=== PATIENT | female | born 1955 | race Caucasian/White ===

== ENCOUNTER 2019-12-18 08:27 | Outpatient (CLI) | payer OTHER, SELFPAY ==
--- NOTE | ~2019-12-18 | MM_ITS ---
EXAMINATION: MM screening kar BI w tess HISTORY: Screening mammogram TECHNIQUE: Craniocaudal and mediolateral oblique 3-D tomosynthesis images were obtained and synthetic 2-D images were generated. CAD analysis was submitted and interpreted. COMPARISON: No prior mammogram is available for comparison at this institution. BREAST PARENCHYMAL COMPOSITION: The breasts are almost entirely fatty. FINDINGS: There is no evidence of suspicious mass, calcification, or architectural distortion to sugg est malignancy in either breast. There has been no suspicious interval change. IMPRESSION: 1. No mammographic evidence of malignancy. 2. Recommend routine screening mammography in one year. BI-RADS Category 1: Negative Reviewed, dictated and finalized at location A.
== END 2019-12-18 08:28 | disposition home or self-care (01) ==
LOC: ANHIMG 08:28
PROVIDERS: PCP Family Medicine; Visit Provider Family Medicine
DX: Z12.31 Encounter for screening mammogram for malignant neoplasm of breast (principal)
CPT/HCPCS: 77063; 77067

== ENCOUNTER 2020-02-27 15:57 | Outpatient (CLI) | payer OTHER, SELFPAY ==
--- NOTE | ~2020-02-27 | XR_ITS ---
EXAMINATION: XR wrist RT min 3V DATE: 02/27/2020 16:20 INDICATION: Right wrist pain and swelling. TECHNIQUE: 4 views of right wrist were obtained. COMPARISON: None. FINDINGS: Bone alignment is normal. No fracture. Joint spaces are normal. IMPRESSION: 1. Normal right wrist. Reviewed, dictated and finalized at location A. IMPRESSION: 1. Normal right wrist.
== END 2020-02-27 15:58 | disposition home or self-care (01) ==
PROVIDERS: PCP Family Medicine; Visit Provider Family Medicine
DX: M25.531 Pain in right wrist (principal)
CPT/HCPCS: 73110

== ENCOUNTER 2020-04-03 00:46 | Outpatient (CLI) | payer MEDICARE, OTHER, SELFPAY ==
[2020-04-03 18:07] LABS: SARS-CoV-2 RNA PCR Negative
== END 2020-04-03 00:47 | disposition home or self-care (01) ==
LOC: ANHCOVIDDT 00:46
PROVIDERS: PCP Family Medicine; Visit Provider Internal Medicine Gastroenterology
DX: Z01.818 Encounter for other preprocedural examination (principal); Z11.59 Encounter for screening for other viral diseases
CPT/HCPCS: 87635; C9803; U0003

== ENCOUNTER 2020-04-05 01:36 | Day surgery (SDC) | payer MEDICARE, OTHER, SELFPAY ==
[2020-04-01 14:14] VITALS: BMI 29.0
[2020-04-05 06:50] VITALS: BP 141/70; PULSE 65; RESP 18; TEMP 36.7; O2SAT 99; BMI 29.5
[2020-04-05] MEDS: LACTATED RINGERS 1,000 ML 150 ML IV CONT (07:00)
[2020-04-05 07:05] LABS: Glucose Point of Care 89 (65-105)
--- NOTE | 2020-04-05 07:15 | WPDANESEPPF ---
Anes - Initial Pre Proc Eval Procedure: Operation Date: 04/05/20 08:00 Proposed Procedures p Screening Colonoscopy - Yehuda Fish MD Date/Time: 04/05/20 07:15 Surgeon: Yehuda Fish MD Pre Op Diagnosis: fm hx of colon ca Patient Data Age: 64 Gender: F Height: 5 ft 2 in Weight: 73.3 kg Last Vital Signs Temp 36.7 C 04/05/20 06:50 Pulse 65 04/05/20 06:50 Resp 18 04/05/20 06:50 BP 141/70 H 04/05/20 06:50 Pulse Ox 99 04/05/20 06:50 Allergies Allergy/AdvReac Type Severity Reaction Status Date / Time No Known Allergies Allergy Unknown Verified 04/05/20 06:48 Home Medications Medication Instructions Recorded Confirmed Type lisinopril 10 mg tablet 10 mg PO DAILY #90 tablet 08/23/19 04/01/20 Rx montelukast 10 mg tablet 10 mg PO DAILY #90 tablet 09/12/19 04/01/20 Rx estradiol 1 mg tablet 1 mg PO DAILY #90 tablet 10/05/19 04/01/20 Rx metformin 500 mg tablet,extended 1,000 mg PO BID #360 tablet 02/27/20 04/01/20 Rx release 24 hr rosuvastatin 10 mg tablet 10 mg PO DAILY #90 tablet 02/27/20 04/01/20 Rx Juice Plus 1 tab-cap PO BID 04/01/20 04/01/20 History Sbi Powder 1 scoop/day PO DAILY 04/01/20 04/01/20 History collagen (bovine) 1 applic TOPICAL DAILY 04/01/20 04/01/20 History fexofenadine [Elizabeth Allergy] 60 mg PO DAILY 04/01/20 04/01/20 History niacin 1,000 mg PO HS 04/01/20 04/01/20 History potassium bicarb-magnesium 21 1 g PO DAILY 04/01/20 04/01/20 History red yeast rice 600 mg PO DAILY 04/01/20 04/01/20 History vitamin D3-vitamin K2 1 tablet PO DAILY 04/01/20 04/01/20 History Laboratory Tests 04/05/20 06:59 POC Capillary Glucose 89 mg/dl mg/dl (65-105) Patient hx anesthesia problems: none Family hx anesthesia problems: none PMFSH Past Medical History Medical History Abdominal hernia Chronic maxillary sinusitis Family History Family History Mother Family history of primary malignant neoplasm of liver Family history of pancreatic cancer Diabetes mellitus Hypertension Family history of elevated blood lipids Carcinoma of colon Father Family history of elevated blood lipids Family history of coronary artery disease Diabetes mellitus Family history of cardiovascular disease Sibling Family history of coronary artery disease Diabetes mellitus Family history of elevated blood lipids Family history of liver disease Family history of seizure disorder Grandparent Family history of malignant neoplasm of breast Social History Social History Smoking status: Never smoker Alcohol intake: current Anes - Eval Final PreProcedure Day of Procedure 04/05/20 07:15 Patient weight: overweight Heart: regular rate and rhythm Lungs: clear to auscultation Airway: Mallampati scale class II Neurological: alert and oriented Last oral intake: >/= 8 hours ASA classification: III Emergent: no Anesthetic plan: proceed Anesthesia type and monitoring: general GIVS and standard monitoring Informed Consent: The patient's anesthetic plan and its attendant risks and benefits were discussed with the patient/family/POA. Questions were solicited and answers provided to the satisfaction of the patient/family/POA.
--- NOTE | 2020-04-05 07:44 | WPDGICN ---
Assessment and Plan Assessment and plan (1) Family history of colon cancer in mother: Code(s): Z80.0 - Family history of malignant neoplasm of digestive organs Status: Acute Assessment and Plan: Patient's family history is significant that mother had colon cancer and her sister has had colon polyps. For this reason surveillance colonoscopy is advised now on a 5 year intervals in the future. (2) Family history of colonic polyps: Code(s): Z83.71 - Family history of colonic polyps Status: Acute GI Consult Note Consult date/time: 04/05/20 07:44 HPI: Cyndy Sahni is a 64 year old female seen in evaluation at the request of Dr Heather Galvez. Patient presents for screening surveillance colonoscopy. Patient states that her current weight appetite bowel movements are normal. She denies abdominal pain she denies any blood in her stools. Her family history is significant that her mother had colon cancer and her sister has had colon polyps. Patient's last colonoscopy 5 years ago was unremarkable. Review of Systems Review of Systems: All systems reviewed & are unremarkable except as noted in HPI and below PMFSH Past Medical History Medical History Abdominal hernia Chronic maxillary sinusitis Family History Family History Mother Family history of primary malignant neoplasm of liver Family history of pancreatic cancer Diabetes mellitus Hypertension Family history of elevated blood lipids Carcinoma of colon Father Family history of elevated blood lipids Family history of coronary artery disease Diabetes mellitus Family history of cardiovascular disease Sibling Family history of coronary artery disease Diabetes mellitus Family history of elevated blood lipids Family history of liver disease Family history of seizure disorder Grandparent Family history of malignant neoplasm of breast Social History Social History Smoking status: Never smoker Alcohol intake: current Meds Home Medications and Allergies Home Medications Medication Instructions Recorded Confirmed Type lisinopril 10 mg tablet 10 mg PO DAILY #90 tablet 08/23/19 04/01/20 Rx montelukast 10 mg tablet 10 mg PO DAILY #90 tablet 09/12/19 04/01/20 Rx estradiol 1 mg tablet 1 mg PO DAILY #90 tablet 10/05/19 04/01/20 Rx metformin 500 mg tablet,extended 1,000 mg PO BID #360 tablet 02/27/20 04/01/20 Rx release 24 hr rosuvastatin 10 mg tablet 10 mg PO DAILY #90 tablet 02/27/20 04/01/20 Rx Juice Plus 1 tab-cap PO BID 04/01/20 04/01/20 History Sbi Powder 1 scoop/day PO DAILY 04/01/20 04/01/20 History collagen (bovine) 1 applic TOPICAL DAILY 04/01/20 04/01/20 History fexofenadine [Elizabeth Allergy] 60 mg PO DAILY 04/01/20 04/01/20 History niacin 1,000 mg PO HS 04/01/20 04/01/20 History potassium bicarb-magnesium 21 1 g PO DAILY 04/01/20 04/01/20 History red yeast rice 600 mg PO DAILY 04/01/20 04/01/20 History vitamin D3-vitamin K2 1 tablet PO DAILY 04/01/20 04/01/20 History Allergies Allergy/AdvReac Type Severity Reaction Status Date / Time No Known Allergies Allergy Unknown Verified 04/05/20 06:48 Vital Signs Vital Signs - 24 hr 04/05/20 06:50 Temperature 98.0 F Pulse Rate 65 Respiratory Rate 18 Blood Pressure 141/70 H Pulse Oximetry 99 Exam Narrative: Exam Narrative: Physical exam reveals patient be alert. Oriented x3. Vital signs stable. HEENT exam unremarkable. Lungs are clear to auscultation and to percussion. Heart is without murmur or extra sounds. Abdominal exam bowel sounds are present soft nontender with no hepatosplenomegaly. Digital external rectal exam is normal.
[2020-04-05 08:08] VITALS: BP 142/77; PULSE 94; RESP 20; O2SAT 96
[2020-04-05 08:18] VITALS: BP 139/81; PULSE 72; RESP 18; O2SAT 96
[2020-04-05 08:28] VITALS: BP 134/76; PULSE 58; RESP 17; O2SAT 100
== END 2020-04-05 08:45 | disposition home or self-care (01) ==
PROVIDERS: PCP Family Medicine; Visit Provider Internal Medicine Gastroenterology
PROC: 0DJD8ZZ Inspection of Lower Intestinal Tract, Via Natural or Artificial Opening Endoscopic (ICD-10-PCS; CPT 45378; principal; 2020-04-05 08:00)
DX: Z12.11 Encounter for screening for malignant neoplasm of colon (principal); D12.0 Benign neoplasm of cecum; D12.2 Benign neoplasm of ascending colon; K64.8 Other hemorrhoids; Z83.71 Family history of colonic polyps; Z80.0 Family history of malignant neoplasm of digestive organs
CPT/HCPCS: 45385; 88305; J2704; J7120

== ENCOUNTER 2020-11-18 12:23 | Outpatient (CLI) | payer MEDICARE, SELFPAY ==
--- NOTE | ~2020-11-18 | MMUS_ITS ---
EXAMINATION: MM diagnostic kar BI w tess, US breast LT limited HISTORY: Pain in the outer left breast. TECHNIQUE: Craniocaudal, mediolateral, and mediolateral oblique 3-D tomosynthesis images of the pauline ts were performed and synthetic 2-D images were generated. CAD analysis was submitted and interpreted . High resolution limited left breast ultrasound was performed. COMPARISON: 12/18/2019, 12/14/2018, 11/26/2017, 11/19/2016 BREAST PARENCHYMAL COMPOSITION: The breasts are almost entirely fatty. FINDINGS: MAMMOGRAPHIC FINDINGS: There is no evidence of suspicious mass, calcification, or architectural distortion in either breast to suggest malignancy. There has been no suspicious interval change. No mammographic correlate is id entified for the reported pain in the upper outer quadrant of the left breast. ULTRASOUND: There is no evidence of focal abnormal solid or cystic lesion in the vicinity of the patient's report ed breast pain. IMPRESSION: 1. No specific mammographic or sonographic correlate is identified for the reported left breast pain Further evaluation at this time should be based on clinical assessment. Continued follow-up physical examination is recommended. 2. Recommend routine screening mammography in one year. BI-RADS Category 1: Negative Reviewed, dictated and finalized at location A. HER FISH IMPRESSION: 1. No specific mammographic or sonographic correlate is identified for the repo rted left breast pain Further evaluation at this time should be based on clinic al assessment. Continued follow-up physical examination is recommended. 2. Recommend routine screening mammography in one year. BI-RADS Category 1: Negative
== END 2020-11-18 12:24 | disposition home or self-care (01) ==
PROVIDERS: PCP Family Medicine; Visit Provider Family Medicine
DX: N64.4 Mastodynia (principal)
CPT/HCPCS: 76642; 77062; 77066; G0279

== ENCOUNTER 2021-04-10 13:15 | Outpatient (CLI) | payer MEDICARE, SELFPAY ==
--- NOTE | 2021-04-10 13:20 | ECG_ITS ---
Measurements Intervals [place] Rate: 71 P: 25 VA: 144 QRS: 5 QRSD: 88 T: 30 QT: 354 QTc: 385 Interpretive Statements SINUS RHYTHM BORDERLINE R WAVE PROGRESSION, ANTERIOR LEADS BORDERLINE ECG Electronically Signed On 04-10-2021 15:56:13 CDT by Joni Gan D.O.
[2021-04-10 13:57] LABS: Anion Gap 9 mmol/L (8-16); Blood Urea Nitrogen 11 mg/dL (7-17); Calcium 10.1 mg/dL (8.4-10.2); Carbon Dioxide 29 mmol/L (22-30); Chloride 100 mmol/L (98-107); Estimated Glomerular Filt Rate > 60; Glucose 102 mg/dL (65-105); Potassium 3.6 mmol/L (3.4-5.0); Sodium 138 mmol/L (137-145)
== END 2021-04-10 13:16 | disposition home or self-care (01) ==
LOC: ANHSURGERY 13:18
PROVIDERS: Anesthesiology; PCP Family Medicine; Visit Provider Surgery Plastic and Reconstructive Surgery
DX: I10 Essential (primary) hypertension (principal); R73.03 Prediabetes; R94.31 Abnormal electrocardiogram [ECG] [EKG]
CPT/HCPCS: 36415; 80048; 93005

== ENCOUNTER 2021-04-15 01:12 | Day surgery (SDC) | payer MEDICARE, OTHER, SELFPAY ==
[2021-04-09 14:43] VITALS: BMI 27.6
[2021-04-15] VITALS (15 sets, daily range): BP systolic 152–184; BP diastolic 71–95; PULSE 63–79; RESP 10–20; TEMP 36.1–36.2; O2SAT 96–100
[2021-04-15 10:00] LABS: Urine Cotinine NEGATIVE
[2021-04-15] MEDS: LACTATED RINGERS 1,000 ML 30 ML IV CONT ×2 (10:20→14:30)
[2021-04-15 10:23] LABS: Glucose Point of Care 94 mg/dl (65-105)
--- NOTE | 2021-04-15 10:25 | WPDHPUPDATE1 ---
History and Physical Update Update Date/Time: 04/15/21 10:25 History and Physical has been reviewed, including an updated exam of the patient. There are NO changes in the patient's condition. Risks, benefits, and alternatives have been discussed and questions answered. Patient agrees to proceed with procedure.
--- NOTE | 2021-04-15 10:47 | WPDANESEPPF ---
Anes - Initial Pre Proc Eval Procedure: Operation Date: 04/15/21 11:30 Proposed Procedures p Bilateral Breast Reduction, - Elier Godwin MD s Lateral Liposuction of Breasts - Elier Godwin MD Date/Time: 04/15/21 10:47 Surgeon: Elier Godwin MD Pre Op Diagnosis: macromastia Patient Data Age: 66 Gender: F Height: 1.57 m Weight: 68 kg Last Vital Signs Temp 97.2 F L 04/15/21 10:30 Pulse 76 04/15/21 10:30 BP 162/71 H 04/15/21 10:30 Pulse Ox 98 04/15/21 10:30 Allergies Allergy/AdvReac Type Severity Reaction Status Date / Time No Known Allergies Allergy Unknown Verified 04/15/21 09:54 Home Medications Medication Instructions Recorded Confirmed Type Juice Plus 1 tab-cap PO BID 04/01/20 04/15/21 History Sbi Powder 1 scoop/day PO DAILY 04/01/20 04/15/21 History fexofenadine [Elizabeth Allergy] 60 mg PO DAILY 04/01/20 04/15/21 History niacin 1,000 mg PO HS 04/01/20 04/15/21 History potassium bicarb-magnesium 21 1 g PO DAILY 04/01/20 04/15/21 History red yeast rice 600 mg PO DAILY 04/01/20 04/15/21 History vitamin D3-vitamin K2 1 tablet PO DAILY 04/01/20 04/15/21 History fluticasone propionate 50 See Rx Instructions .ROUTE 09/16/20 04/15/21 Rx mcg/actuation nasal .COMPLEX #16 milliliter spray,suspension montelukast 10 mg tablet See Rx Instructions .ROUTE 10/01/20 04/15/21 Rx .COMPLEX #30 tablet lisinopril 10 mg tablet 10 mg PO DAILY #90 tablet 11/19/20 04/15/21 Rx metformin 500 mg tablet,extended 1,000 mg PO BID #360 tablet 11/19/20 04/15/21 Rx release 24 hr omeprazole [Prilosec] 20 mg PO PRN PRN 12/25/20 04/15/21 History sennosides 8.6 mg tablet 8.6 mg PO PRN PRN 12/25/20 04/15/21 History estradiol 1 mg tablet See Rx Instructions .ROUTE 03/04/21 04/15/21 Rx .COMPLEX #90 tablet docusate sodium 100 mg capsule 100 mg PO DAILY #14 cap 04/02/21 04/09/21 Rx ondansetron HCl 4 mg tablet 4 mg PO Q8H #21 tablet 04/02/21 04/09/21 Rx hydrocodone 5 mg-acetaminophen 325 1 tablet PO Q6H PRN #15 tablet 04/06/21 04/09/21 Rx mg tablet rosuvastatin [Crestor] 10 mg PO HS 04/09/21 04/15/21 History Laboratory Tests 04/15/21 04/15/21 09:41 10:20 POC Capillary Glucose 94 mg/dl mg/dl (65-105) Cotinine Negative Patient hx anesthesia problems: post op nausea/vomiting Family hx anesthesia problems: none PMFSH Past Medical History Medical History (Updated 04/15/21 @ 10:40 by Arya Hill MD) Abdominal hernia Chronic maxillary sinusitis Essential hypertension History of chicken pox (~1960) History of measles History of mumps Mixed hyperlipidemia Prediabetes Surgical History Surgical History History of appendectomy (~05/03/06) History of dilatation and curettage (~02/1981) History of endometrial ablation (~1988) History of hernia repair (~01/08/16) History of hysterectomy with bilateral oophorectomy (~06/1987) History of tubal ligation (~01/26/85) Family History Family History Mother , age 90 Family history of primary malignant neoplasm of liver Family history of pancreatic cancer Diabetes mellitus Hypertension Family history of elevated blood lipids Carcinoma of colon Pancreatic cancer Father , age 62 Family history of coronary artery disease Diabetes mellitus Heart disease Hyperlipidemia Sibling Diabetes mellitus Seizure Mental disability Sibling Heart disease ALS (amyotrophic lateral sclerosis) Sibling , age 32 Liver cirrhosis Grandparent Breast cancer Grandparent Heart disease Social History Social History Smoking status: Unknown if ever smoked Alcohol intake: current Alcohol use details: ONE DRINK PER MONTH Living arrangements: with family Spiritual care concerns: No Anes - Eval Final PrePro
--- NOTE | 2021-04-15 10:53 | P.OP_ITS ---
Procedure Note - Detailed Date of Procedure 04/15/21 Pre-op Diagnosis macromastia Post-op Diagnosis same Procedure Performed Bilateral reduction mammaplasty with lateral chest wall suction lipectomy Surgeon Elier Godwin MD Anesthesia general Findings Tissue removed: Right - 632 grams breast tissue, 683.6 total weight (including lateral breast) Left - 608.8 grams breast tissue, 660.6 total weight (including lateral tissue) Suction lipectomy lipoaspirate 800 cc (400 per side) Description of Procedure She is here today for bilateral breast reduction. Previously and again today the risks, benefits, alternatives were discussed in extensive detail. I wanted her to be very realistic about the risks involved as well as expectations. We discussed aftercare and what to monitor for. She understands we can never guarantee final breast size and there will always be asymmetry. I was very upfront and honest about the risks of sensation change and even nipple loss (). We discussed her suction lipectomy and the limitations as well as skin laxity that may result. Made sure answered all of her questions to her satisfaction today and consent was obtained. She was marked in the preoperative holding area with their verification. The patient was taken to the operating room placed supine on the operating table. Anesthesia was provided by anesthesiology. She was prepped and draped in a standard sterile fashion. A surgical time-out was taken. Stab incisions were made and I tumessed with a tumescent solution. Suction lipectomy was completed based on S.A.F.E. technique in multiple planes / passes using a 5mm and 3mm basket cannulas to a rolling pinch test based on pre- operative planning. I marked out the nipple-areolar complex at 42 mm. I then de-epithelialized the pedicle. The pedicle was well left well more than 2 cm in thickness. I then removed the inferior portion of the breast as well as the central keel to get shape based on preoperative planning. At this point copiously irrigated with saline solution and verified a strict hemostasis. I reapproximated the pillars using a 2-0 PDS as well as along the IMF. I tailor tacked the breast into place with wellington. She was placed in a sitting position. I verified the nipple-areolar complex position based on preoperative markings, intraoperative measurements, and observation which were in full agreement. This nipple-areolar complex was marked at 42 mm in size. I then placed supine and de-epithelialized this. Nipple-areolar complex was inset with 3-0 Monocryl. I closed the vertical incision with 3-0 Monocryl in the IMF with 3-0 stratafix. Then everything was closed using a running subcuticular 4-0 Monocryl followed by Steri-Strips. A dressing was placed followed by surgical bra. Patient was awoke and taken to PACU without difficulty. All instrument sponge counts were correct at the end of the case. Estimated Blood Loss 75 Drains No Packing No Pathology yes (Bilateral breast tissue) Complications No immediate complications Condition stable Disposition PACU
[2021-04-15] MEDS: SCOPOLAMINE 1.5 MG PATCH TRANSDERM (10:56)
[2021-04-15] MEDS: ceFAZolin 2 GM/D5W 50 ML 2 GM/50 ML BAG IVPB (11:07)
[2021-04-15] MEDS: LACTATED RINGERS IRRIG 1,000 ML, LIDOCAINE HCL 1% LOCAL INJ 50 ML, EPINEPHrine HCL INJ ... INFILTRATE (13:17)
--- NOTE | 2021-04-15 13:37 | SUR.OPER ---
Liposuction times: start 1145 stop 1210 start 1251 stop 1301
[2021-04-15] MEDS: TRANEXAMIC ACID 1,000MG/ISO100 1,000 MG/100 ML BAG 200 MG IVPB (13:47)
[2021-04-15 15:08] LABS: Glucose Point of Care 107 mg/dl (65-105)
[2021-04-15] MEDS: fentaNYL CITRATE INJ (*CRX) 100 MCG/2 ML VIAL 25 MCG IV PUSH ×3 (15:43→16:10)
[2021-04-15] MEDS: oxyCODONE HCL (*CRX) 5 MG TAB IR PO (17:12)
== END 2021-04-15 18:15 | disposition home or self-care (01) ==
PROVIDERS: PCP Family Medicine; Visit Provider Surgery Plastic and Reconstructive Surgery
PROC: 0HBV0ZZ Excision of Bilateral Breast, Open Approach (ICD-10-PCS; CPT 19318; principal; 2021-04-15 11:30)
PROC: (CPT 15877; 2021-04-15 11:30)
DX: N62 Hypertrophy of breast (principal); D22.5 Melanocytic nevi of trunk; I10 Essential (primary) hypertension; E78.2 Mixed hyperlipidemia; R73.03 Prediabetes; Z79.899 Other long term (current) drug therapy; Z79.84 Long term (current) use of oral hypoglycemic drugs
CPT/HCPCS: 19318; 80307; 82948; 88305; 88342; A9270; J0171; J0690; J1100; J1170; J2250; J2405; J2704; J3010; J7120

== ENCOUNTER 2021-06-25 14:30 | Outpatient (CLI) | payer MEDICARE, SELFPAY ==
--- NOTE | ~2021-06-25 | CT_ITS ---
EXAMINATION: CT abdomen pelvis wo con DATE: 06/25/2021 14:49 INDICATION: Abdominal and pelvic swelling TECHNIQUE: Computed tomography (CT) of the abdomen and pelvis was performed without intravenous contr ast. The dose-length product (DLP) was 531.49 mGy-cm. Automated exposure control and iterative recons truction technique were employed. COMPARISON: 04/28/2006 FINDINGS: The lung bases are clear. The heart size is normal. Within the limitations of noncontrast e xamination, the liver, spleen, pancreas, gallbladder, and adrenal glands are normal. The kidneys are unremarkable. No pathologically enlarged abdominal or pelvic lymph nodes are identified. There is no free intraperitoneal gas or evidence of bowel obstruction. There is a small infraumbilical hernia con taining the anterior wall of a nonobstructed small bowel. In addition, there is a [id number] s ized suprapubic ventral hernia containing nonobstructed small bowel. There is mild lumbar spondylosis . IMPRESSION: 1. Infraumbilical and suprapubic ventral hernias containing nonobstructed small bowel. Reviewed, dictated and finalized at location A.
== END 2021-06-25 14:31 | disposition home or self-care (01) ==
LOC: ANHIMG 14:34
PROVIDERS: PCP Family Medicine; Visit Provider Surgery Plastic and Reconstructive Surgery
DX: R19.00 Intra-abdominal and pelvic swelling, mass and lump, unspecified site (principal); K42.9 Umbilical hernia without obstruction or gangrene; K43.9 Ventral hernia without obstruction or gangrene
CPT/HCPCS: 74176

== ENCOUNTER 2021-10-15 11:15 | Observation (INO) | payer MEDICARE, SELFPAY ==
--- NOTE | 2021-09-30 09:54 | PC.NURSE ---
Report to the Outpatient Waiting Room, entrance under the green pavilion located off [facility], at time _0600_ on date _10/14/21__. OR Time: _0730 AM__. - You and your visitor will be asked a series of questions to screen for COVID 19 for your protection. - A mask is required within the hospital. - NO visitors are allowed at this time. Patient visitors will be guided where to wait when not with patient. Preoperative COVID Testing Requirements: No COVID Test needed if: (proof is required; if not received patient will have Rapid Test prior to entry) - Patient has received COVID Vaccine at least 14 days prior to procedure date or - Patient has positive COVID test result within last 90 days of surgery date. COVID Test needed if above criteria is not met If not COVID vaccinated a COVID test must be conducted within 72 hours of surgery and patient is asked to isolate self from time of testing until procedure. You will go to the [email or web address] for your COVID testing. The [email or web address] site is located at the corner of [address] [facility]. You will only be called if COVID results are positive and your surgeon may reschedule your elective surgery date. Patients may have clear liquids (water, carbonated beverages, clear teas, apple juice) until 3 hours prior to surgery with a maximum of 20 ounces. (0430 AM) - No food from midnight until time of surgery - Infants may have breast milk until 4 hours before surgery, infant formula 6 hours prior to surgery. - Children will be allowed to drink immediately following surgery. If applicable, please bring a bottle or sippy cup to assist with drinking. Juice, water, soda, and popsicles are readily available. For infants on formula, please bring formula the day of surgery. Pacifiers are allowed. Take the following medications with a SIP of water the morning of surgery: _NONE__ Medications to discontinue per ANESTHESIA __ALL VITAMINS AND SUPPLEMENTS - PT STATES ALREADY STOPPING 09/21/21 & STOPPED JUICE PLUS 09/30/21 Please no make-up, nail thai, hairspray, perfume, deodorant, or body powder the day of surgery. No jewelry (including any body piercings) or valuables the day of surgery, leave them at home. Please take a shower or bath the night before, or the morning of, surgery with an antibacterial soap. Wear comfortable, loose fitting clothing. Children are encouraged to wear pajamas. - Jewelry must be removed prior to entering the operating room. Rings and piercings that are not removed may be cut off. - The hospital will not accept responsibility for valuables. - Please leave all valuables, including medications, at home the day of surgery. If you are going home after surgery, a licensed delivery motorcycle driver must drive you home. - NO public transportation without another adult. - We recommend that an adult stay with you for 24 hours following discharge. - We also recommend that you do not drive, make important decision, drink alcoholic beverages, or take any drugs that were not prescribed by your health care provider for at least 24 hours after your discharge time. For Pediatric surgeries, we recommend two adults accompany the child home (only one inside the building at this time). Follow any additional instructions given to you from your surgeon. YANIV SHOWER AM OF SURGERY Telephone instructions given to ____PT and asked if any additional questions and then verbalized understanding. Patient advised to call surgeon office or pre surgery nurse liaison [phone] if any additional questions.
[2021-09-30 10:38] VITALS: BP 142/82; PULSE 74; RESP 18; TEMP 36.6; O2SAT 98; BMI 25.2
[2021-10-14] VITALS (13 sets, daily range): BP systolic 91–131; BP diastolic 54–76; PULSE 55–82; RESP 9–18; TEMP 35.6–36.6; O2SAT 94–100
[2021-10-14] MEDS: LACTATED RINGERS 1,000 ML 30 ML IV CONT ×3 (06:35→12:09)
[2021-10-14] MEDS: ACETAMINOPHEN 500 MG TABLET 1000 MG PO ×3 (06:36→20:19)
[2021-10-14] MEDS: KETOROLAC 15 MG/ML VIAL (*BKC) IV PUSH (06:37)
[2021-10-14 06:49] LABS: Glucose Point of Care 105 mg/dl (65-105)
[2021-10-14] MEDS: SCOPOLAMINE 1.5 MG PATCH TRANSDERM (07:10)
--- NOTE | 2021-10-14 07:10 | WPDANESEPPF ---
Anes - Initial Pre Proc Eval Procedure: Operation Date: 10/14/21 07:30 Proposed Procedures p Open Recurrent Incisional Hernia Repair with Mesh, with Bilateral Component Separation - Robbie Estrada DO Date/Time: 10/14/21 07:10 Surgeon: Robbie Estrada DO Pre Op Diagnosis: recurrent incisional hernia Patient Data Age: 66 Gender: F Height: 1.57 m Weight: 62.7 kg Last Vital Signs Temp 36.6 C 09/30/21 10:38 Pulse 74 09/30/21 10:38 Resp 18 09/30/21 10:38 BP 142/82 H 09/30/21 10:38 Pulse Ox 98 09/30/21 10:38 Allergies Allergy/AdvReac Type Severity Reaction Status Date / Time No Known Allergies Allergy Unknown Verified 09/30/21 10:24 Home Medications Medication Instructions Recorded Confirmed Type Juice Plus 1 tab-cap PO BID 04/01/20 09/30/21 History Sbi Powder 1 scoop/day PO DAILY 04/01/20 09/30/21 History fexofenadine [Elizabeth Allergy] 60 mg PO DAILY PRN 04/01/20 09/30/21 History niacin 1,000 mg PO BID 04/01/20 09/30/21 History potassium bicarb-magnesium 21 1 g PO DAILY 04/01/20 09/30/21 History red yeast rice 600 mg PO DAILY 04/01/20 09/30/21 History vitamin D3-vitamin K2 1 tablet PO DAILY 04/01/20 09/30/21 History metformin 500 mg tablet,extended 1,000 mg PO BID #360 tablet 11/19/20 09/30/21 Rx release 24 hr sennosides 8.6 mg tablet 8.6 mg PO PRN PRN 12/25/20 09/30/21 History rosuvastatin [Crestor] 10 mg PO HS 04/09/21 09/30/21 History fluticasone propionate 50 See Rx Instructions .ROUTE 08/22/21 09/30/21 Rx mcg/actuation nasal .COMPLEX #16 ml spray,suspension Methyl B Complex 1 caplet QAM 09/30/21 09/30/21 History estradiol 1 mg QAM 09/30/21 09/30/21 History lisinopril 10 mg QAM 09/30/21 09/30/21 History magnesium 300 mg PO DAILY 09/30/21 09/30/21 History montelukast 10 mg HS 09/30/21 09/30/21 History omeprazole magnesium [Prilosec OTC] 20 mg PO DAILY PRN 09/30/21 09/30/21 History Laboratory Tests 10/14/21 06:46 POC Capillary Glucose 105 mg/dl mg/dl (65-105) Patient hx anesthesia problems: post op nausea/vomiting Family hx anesthesia problems: none Results Review: All pre-operative results and documents have been reviewed as part of the pre-operative evaluation. [facility] Past Medical History Medical History Abdominal hernia Chronic maxillary sinusitis Essential hypertension History of chicken pox (~1960) History of measles History of mumps Mixed hyperlipidemia Prediabetes Surgical History Surgical History History of appendectomy (~05/03/06) History of dilatation and curettage (~02/1981) History of endometrial ablation (~1988) History of hernia repair (~01/08/16) History of hysterectomy with bilateral oophorectomy (~06/1987) History of tubal ligation (~01/26/85) Family History Family History Mother , age 90 Family history of primary malignant neoplasm of liver Family history of pancreatic cancer Diabetes mellitus Hypertension Family history of elevated blood lipids Carcinoma of colon Pancreatic cancer Father , age 62 Family history of coronary artery disease Diabetes mellitus Heart disease Hyperlipidemia Sibling Diabetes mellitus Seizure Mental disability Sibling Heart disease ALS (amyotrophic lateral sclerosis) Sibling , age 32 Liver cirrhosis Grandparent Breast cancer Grandparent Heart disease Social History Social History Smoking status: Never smoker Second hand tobacco smoke exposure: No Alcohol intake: current Alcohol use details: STATES RARELY - MAYBE 1/MONTH Substance use: never Substance use type: does not use Living arrangements: with family 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
--- NOTE | 2021-10-14 07:16 | WPDHPUPDATE1 ---
History and Physical Update Update Date/Time: 10/14/21 07:16 History and Physical has been reviewed, including an updated exam of the patient. There are NO changes in the patient's condition. Risks, benefits, and alternatives have been discussed and questions answered. Patient agrees to proceed with procedure.
--- NOTE | 2021-10-14 07:16 | PM.IMHP ---
H&P: HPI History of Present Illness Date/Time: 10/14/21 07:16 Chief Complaint: Incisional hernia Narrative: 66yo woman presents for recurrent incisional hernia repair. She has a hx of open appendectomy and developed an incisional hernia. She then had this hernia repaired with mesh. She now has evidence of a recurrence. She denies any changes since last seen in office. Review of Systems Review of Systems: All systems reviewed & are unremarkable except as noted in HPI and below Constitutional: Constitutional: Denies chills, Denies fever(s), Denies headache(s) and Denies weight loss Eyes: Eyes: Denies change in vision ENT: Denies dizziness, Denies headache(s), Denies neck mass and Denies throat swelling Cardiovascular: Cardiovascular: Denies chest pain, Denies lightheadedness and Denies dyspnea Respiratory: Respiratory: Denies cough, Denies dyspnea and Denies wheezing Gastrointestinal: Gastrointestinal: Denies abdominal pain, Denies change in bowel habits, Denies nausea and Denies vomiting Genitourinary: Genitourinary: Denies hematuria and Denies dysuria Musculoskeletal: Musculoskeletal: Reports as per HPI Integumentary/Breasts: Skin/Breast: Reports as per HPI Neurologic: Denies dizziness and Denies headache(s) Allergic/Immunologic: Allergic/Immunologic: Denies throat swelling and Denies wheezing PMFSH Past Medical History Medical History Abdominal hernia Chronic maxillary sinusitis Essential hypertension History of chicken pox (~1960) History of measles History of mumps Mixed hyperlipidemia Prediabetes Surgical History Surgical History History of appendectomy (~05/03/06) History of dilatation and curettage (~02/1981) History of endometrial ablation (~1988) History of hernia repair (~01/08/16) History of hysterectomy with bilateral oophorectomy (~06/1987) History of tubal ligation (~01/26/85) Family History Family History Mother , age 90 Family history of primary malignant neoplasm of liver Family history of pancreatic cancer Diabetes mellitus Hypertension Family history of elevated blood lipids Carcinoma of colon Pancreatic cancer Father , age 62 Family history of coronary artery disease Diabetes mellitus Heart disease Hyperlipidemia Sibling Diabetes mellitus Seizure Mental disability Sibling Heart disease ALS (amyotrophic lateral sclerosis) Sibling , age 32 Liver cirrhosis Grandparent Breast cancer Grandparent Heart disease Social History Social History Smoking status: Never smoker Second hand tobacco smoke exposure: No Alcohol intake: current Alcohol use details: STATES RARELY - MAYBE 1/MONTH Substance use: never Substance use type: does not use Living arrangements: with family 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: No Meds Home Medications and Allergies Home Medications Medication Instructions Recorded Confirmed Type Juice Plus 1 tab-cap PO BID 04/01/20 09/30/21 History Sbi Powder 1 scoop/day PO DAILY 04/01/20 09/30/21 History fexofenadine [Elizabeth Allergy] 60 mg PO DAILY PRN 04/01/20 09/30/21 History niacin 1,000 mg PO BID 04/01/20 09/30/21 History potassium bicarb-magnesium 21 1 g PO DAILY 04/01/20 09/30/21 History red yeast rice 600 mg PO DAILY 04/01/20 09/30/21 History vitamin D3-vitamin K2 1 tablet PO DAILY 04/01/20 09/30/21 History metformin 500 mg tablet,extended 1,000 mg PO BID #360 tablet 11/19/20 09/30/21 Rx release 24 hr sennosides 8.6 mg tablet 8.6 mg PO PRN PRN 12/25/20 09/30/21 History rosuvastatin [Crestor] 10 mg PO HS 04/09/21 09/30/21 History fluticasone propionate 50 See Rx Instructions .ROUTE 08/22/21
[2021-10-14] MEDS: ceFAZolin 2 GM/D5W 50 ML 2 GM/50 ML BAG IVPB ×2 (07:28→16:08)
[2021-10-14 11:24] LABS: Glucose Point of Care 123 mg/dl (65-105)
[2021-10-14] MEDS: fentaNYL CITRATE INJ (*CRX) 100 MCG/2 ML VIAL 25 MCG IV PUSH ×3 (12:19→12:49)
--- NOTE | 2021-10-14 12:35 | W.PM.PROC2 ---
Procedure Note - Detailed Date of Procedure 10/14/21 Pre-op Diagnosis recurrent incisional hernia Post-op Diagnosis same Procedure Performed 1. Open recurrent incisional hernia repair with Bard soft polypropylene mesh 2. Bilateral myofascial advancement flap (3 cm transversus abdominis release on right and 3 cm transversus abdominis release on left) 3. Removal of mesh foreign body Surgeon Robbie Estrada DO Field Assistant Wood Ortiz MD Anesthesia general Indications This is a 66-year-old woman who presents with a recurrent incisional hernia. She has noticed bulge in her lower abdomen that has been present for the past several years. She does get some pain and some difficulty urinating with this. She has a history of exploratory laparotomy with appendectomy in 2005, and then she had an incisional hernia repair with mesh 2015. She had a CT of abdomen and pelvis done on 06/25/2021 which showed evidence of infraumbilical and suprapubic ventral hernias containing nonobstructed small. Discussions were made with the patient about treatment options and decision was made to proceed with open recurrent incisional hernia repair with bilateral component separation. Findings Recurrent incisional hernia repair was performed. The patient had evidence of a 6 cm wide by 10 cm vertical recurrent incisional hernia in the lower midline and suprapubic regions. There was a previous mesh that was placed intra-abdominally and appeared to be contracted and partially protruding up into the hernia sac. The old mesh was excised and sent to lab for pathology. A retro rectus plane was then created bilaterally and then a transversus abdominis release was performed on each side to allow for adequate mobilization of the fascia to midline. The transversus abdominis release allowed 3 cm of myofascial advancement flap on the left as well as 3 cm on the right. I then chose a 12 in x 12 in Bard soft polypropylene mesh to place within the retrorectus space. The mesh was oriented in a yosvany pattern to allow for adequate overlap from the xiphoid to the pubis. A 19 round Alfonso drain was placed within the retrorectus space monitor for any ongoing bleeding and prevent seroma or hematoma formation. Description of Procedure Procedure as well as risks, benefits, and alternatives were discussed with the patient. Written consent was obtained and placed in chart prior to procedure. The patient was brought back to surgical suite. She was placed supine on operating table. Time-out was done to confirm patient and procedure. She was then intubated by anesthesia department. Her was prepped and draped in sterile fashion using chlorhexidine prep. A 20 cm vertical with midline incision was made from just superior to the umbilicus all the way down to the suprapubic region using a 10 blade scalpel. Electrocautery was used for hemostasis and for dissection through the subcutaneous tissue. In the upper midline, linea alba was incised with electrocautery. The peritoneum was then entered using electrocautery. There were some omental adhesions that were carefully taken down using electrocautery and blunt dissection. I then ensured that there was no bowel adherent up to the midline lower abdomen, and then the linea alba was opened inferiorly down to the suprapubic region. The old mesh was incised right through the middle using electrocautery to allow for adequate visualization the fascia. The omental adhesions were then further taken down using electrocautery until the entire abdominal wall was able to be adequately visualized. The mesh was then carefully excised from the fascia using electrocautery. The mesh was sent to the lab for pathology. Was then able to adequately visualize the hernia defect which was measuring about 6 cm wide by 10 cm vertically. Again began entering into the retrorectus plane along right side 1st. The posterior rectus sheath was incised with electrocautery and the retrorectus abdias
--- NOTE | 2021-10-14 12:59 | ADMGEN ---
This patient, Cyndy Sahni, was admitted to -. Patient/family oriented to hospital policies and general routines including ID bracelet, bed and alarms, visiting hours, pain management, procedures, bathroom and other care routines, personal items, smoking policy, room service/diet, and visiting hours. Information on how to activate the Rapid Response Team has been discussed. Patient/Family are encouraged to report perceived risks to care and to ask questions if they do not understand what they are told or what they should do.
[2021-10-14] MEDS: LACTATED RINGERS 1,000 ML 100 ML IV CONT (13:45)
[2021-10-14] MEDS: IBUPROFEN 400 MG TABLET 800 MG PO ×2 (13:48→22:14)
[2021-10-14] MEDS: HYDROmorphone HCL INJ (*CRX) 1 MG/ML SYR IV PUSH ×2 (15:45→22:16)
[2021-10-14] MEDS: metFORMIN HCL XR 500 MG TAB.SR.24H 1000 MG PO (17:20)
[2021-10-14 17:23] LABS: Glucose Point of Care 132 mg/dl (65-105)
[2021-10-14] MEDS: ROSUVASTATIN 10 MG TABLET PO (20:20)
[2021-10-14] MEDS: MONTELUKAST SODIUM 10 MG TABLET PO (20:20)
[2021-10-14 22:41] LABS: Glucose Point of Care 113 mg/dl (65-105)
[2021-10-15] VITALS (8 sets, daily range): BP systolic 98–122; BP diastolic 49–60; PULSE 64–78; RESP 14–18; TEMP 36.2–36.7; O2SAT 97–100
[2021-10-15] MEDS: ACETAMINOPHEN 500 MG TABLET 1000 MG PO ×4 (04:00→20:00)
[2021-10-15 05:36] LABS: Hematocrit 27.8 % (37.0-47.0); Hemoglobin 9.6 g/dL (12.0-15.0); Mean Corpuscular HGB Conc 34.5 g/dl (32-36); Mean Corpuscular Hemoglobin 32.5 pg (26-34); Mean Corpuscular Volume 94.2 fl (80-100); Mean Platelet Volume 9.9 fl (7.4-10.4); Platelet Count Result 228 k/mm3 (150-375); Red Blood Count 2.95 M/mm3 (4.2-5.4); Red Cell Distribution Width 12.9 % (11.5-14.5)
[2021-10-15 05:54] LABS: Anion Gap 5 mmol/L (8-16); Blood Urea Nitrogen 14 mg/dL (7-17); Calcium 8.2 mg/dL (8.4-10.2); Carbon Dioxide 27 mmol/L (22-30); Chloride 97 mmol/L (98-107); Estimated CRCL calculation 48 ml/min; Estimated Glomerular Filt Rate > 60; Glucose 103 mg/dL (65-110); Potassium 4.5 mmol/L (3.4-5.0); Sodium 129 mmol/L (137-145)
[2021-10-15] MEDS: IBUPROFEN 400 MG TABLET 800 MG PO ×3 (06:02→21:43)
--- NOTE | 2021-10-15 08:29 | PM.PNGS ---
Progress Note: A&P Assessment and Plan (1) Recurrent incisional hernia: Code(s): K43.2 - Incisional hernia without obstruction or gangrene Status: Acute Assessment and Plan: Slowly advance activity Bocanegra out today Continue monitoring drain (2) Hyponatremia: Code(s): E87.1 - Hypo-osmolality and hyponatremia Status: Acute Assessment and Plan: Will repeat BMP in AM. Advance diet as tolerated. Subjective Subjective Date/Time Seen: 10/15/21 08:29 Interval history: Pain controlled. Not much activity yet. No other complaints. Exam GI: Inspection: non-distended, incision (dressing dry) and other (LAKIA serosanguinous) GI Palp: Yes Tenderness to palpation present (GI) (incisional) Objective Data Vital Signs Vital Signs: Vital Signs - 24 hr 10/14/21 11:10 10/14/21 11:25 10/14/21 11:40 Temperature 36.6 C Pulse Rate 82 55 L 55 L Respiratory Rate 16 18 18 Blood Pressure 131/76 126/66 127/68 Pulse Oximetry 100 100 100 10/14/21 11:55 10/14/21 12:10 10/14/21 12:25 Temperature Pulse Rate 56 L 56 L 55 L Respiratory Rate 16 13 14 Blood Pressure 122/67 115/66 112/67 Pulse Oximetry 100 100 100 10/14/21 12:48 10/14/21 13:03 10/14/21 13:04 Temperature 35.6 C L 36.6 C Pulse Rate 59 L 59 L 59 L Respiratory Rate 9 L 18 16 Blood Pressure 103/60 102/54 L 102/54 L Pulse Oximetry 100 94 95 10/14/21 13:49 10/14/21 14:49 10/14/21 20:00 Temperature 36.4 C L Pulse Rate 59 L 61 80 Respiratory Rate 16 16 16 Blood Pressure 105/64 91/55 L 125/61 Pulse Oximetry 99 96 99 10/15/21 00:00 10/15/21 02:49 Temperature 36.2 C L 36.2 C L Pulse Rate 64 65 Respiratory Rate 16 14 Blood Pressure 100/55 L 103/55 L Pulse Oximetry 98 99 Intake/Output Intake/Output: Intake & Output 10/12/21 10/13/21 10/14/21 10/15/21 23:59 23:59 23:59 23:59 Intake Total 5100 650 Output Total 355 740 Balance 4765 -51 Meds/Results Medications: Active Medications Generic Name Dose Route Start Last Admin Trade Name Freq PRN Reason Stop Dose Admin Acetaminophen 1,000 mg 10/14/21 14:00 10/15/21 04:00 Acetaminophen 500 Mg Tablet PO 1,000 mg Q6H [place] Administration Enoxaparin Sodium 40 mg 10/15/21 09:00 Enoxaparin 40 Mg/0.4 Ml Syringe SUB-Q DAILY [facility] Estradiol 1 mg 10/15/21 09:00 Estradiol 1 Mg Tablet PO QAM [facility] Hydromorphone HCl 0.5 mg 10/14/21 13:04 Hydromorphone Hcl Inj (*Crx) 1 Mg/Ml Syr IV PUSH Q2H PRN Pain Rated 4-6 Hydromorphone HCl 1 mg 10/14/21 13:04 10/14/21 22:16 Hydromorphone Hcl Inj (*Crx) 1 Mg/Ml Syr IV PUSH 1 mg Q2H PRN Administration Pain Rated 7-10 Ibuprofen 800 mg 10/14/21 14:00 10/15/21 06:02 Ibuprofen 400 Mg Tablet PO 800 mg Q8H [facility] Administration Lisinopril 10 mg 10/15/21 09:00 Lisinopril 10 Mg Tablet PO QAM [facility] Metformin HCl 1,000 mg 10/14/21 17:00 10/14/21 17:20 Metformin Hcl Xr 500 Mg Tab.Sr.24h PO 1,000 mg BID [place] Administration Montelukast Sodium 10 mg 10/14/21 21:00 10/14/21 20:20 Montelukast Sodium 10 Mg Tablet PO 10 mg HS [facility] Administration Ondansetron HCl 4 mg 10/14/21 13:04 Ondansetron Inj 4 Mg/2 Ml Vial IV PUSH Q4H PRN Nausea And Vomiting Oxycodone HCl 2.5 mg 10/14/21 13:04 Oxycodone Hcl (*Crx) 2.5 Mg Tab Ir PO Q4H PRN Pain Rated 4-6 Oxycodone HCl 5 mg 10/14/21 13:04 Oxycodone Hcl (*Crx) 5 Mg Tab Ir PO Q4H PRN Pain Rated 7-10 Pantoprazole Sodium 40 mg 10/15/21 09:00 Pantoprazole 40 Mg Tablet PO QAM [facility] Polyethylene Glycol 17 gm 10/15/21 09:00 Polyethylene Glycol 3350 17 Gm Powd.Pack PO QAM [facility] Rosuvastatin Calcium 10 mg 10/14/21 21:00 10/14/21 20:20 Rosuvastatin 10 Mg Tablet PO 10 mg HS [facility] Administration Labs Labs: Laboratory Results - last 24 hr 10/14/21 10/14/21 10/14/21 11:22 17:19 22:21 WBC RBC Hgb Hct MCV MC
[2021-10-15] MEDS: ceFAZolin 2 GM/D5W 50 ML 2 GM/50 ML BAG IVPB ×2 (08:54)
[2021-10-15] MEDS: polyethylene glycoL 3350 17 GM POWD.PACK PO (09:02)
[2021-10-15] MEDS: ENOXAPARIN 40 MG/0.4 ML SYRINGE SUB-Q (09:04)
[2021-10-15] MEDS: PANTOPRAZOLE 40 MG TABLET PO (09:05)
[2021-10-15] MEDS: metFORMIN HCL XR 500 MG TAB.SR.24H 1000 MG PO ×2 (09:23→17:16)
[2021-10-15] MEDS: estradioL 1 MG TABLET PO (09:23)
[2021-10-15 09:33] LABS: Glucose Point of Care 89 mg/dl (65-105)
[2021-10-15] MEDS: oxyCODONE HCL (*CRX) 2.5 MG TAB IR PO ×2 (11:53→18:52)
[2021-10-15 11:58] LABS: Glucose Point of Care 100 mg/dl (65-105)
--- NOTE | 2021-10-15 12:22 | WPDANESPN ---
Anes - Prog Note Post-Op Date/Time: 10/15/21 12:22 Cardiovascular status: normal Respiratory status: normal Airway patency: baseline Mental status: baseline Post-Op hydration status: normal Vital Signs: Last Vital Signs Temp 97.7 F 10/15/21 08:00 Pulse 66 10/15/21 11:45 Resp 16 10/15/21 11:45 BP 100/49 L 10/15/21 11:45 Pulse Ox 99 10/15/21 11:45 Pain Score (VAS): 10/06 I/O: Intake & Output 10/14/21 10/15/21 10/15/21 23:59 07:59 15:59 Intake Total 2850 650 670 Output Total 165 740 50 Balance 2685 -90 620 Laboratory Tests 10/15/21 05:26 10/15/21 05:26 10/14/21 10/14/21 10/15/21 17:19 22:21 05:26 WBC 8.0 RBC 2.95 L Hgb 9.6 L Hct 27.8 L MCV 94.2 MCH 32.5 MCHC 34.5 RDW 12.9 Plt Count 228 MPV 9.9 Sodium Potassium Chloride Carbon Dioxide Anion Gap BUN Creatinine Estim Creat Clear Calc Estimated GFR Glucose POC Capillary Glucose 132 H 113 H Calcium 10/15/21 10/15/21 10/15/21 05:26 08:59 11:50 WBC RBC Hgb Hct MCV MCH MCHC RDW Plt Count MPV Sodium 129 L Potassium 4.5 Chloride 97 L Carbon Dioxide 27 Anion Gap 5 L BUN 14 Creatinine 0.80 Estim Creat Clear Calc 48 Estimated GFR > 60 Glucose 103 POC Capillary Glucose 89 100 Calcium 8.2 L Post-procedural complaints: none Patient Feedback: Patient satisfied with anesthetic care.
[2021-10-15 17:38] LABS: Glucose Point of Care 120 mg/dl (65-105)
[2021-10-15 20:48] LABS: Glucose Point of Care 157 mg/dl (65-105)
[2021-10-15] MEDS: ROSUVASTATIN 10 MG TABLET PO (21:00)
[2021-10-15] MEDS: MONTELUKAST SODIUM 10 MG TABLET PO (21:42)
[2021-10-16] MEDS: ACETAMINOPHEN 500 MG TABLET 1000 MG PO ×2 (01:42→09:11)
[2021-10-16 03:49] VITALS: BP 120/62; PULSE 70; RESP 18; TEMP 36.7; O2SAT 98
[2021-10-16] MEDS: IBUPROFEN 400 MG TABLET 800 MG PO (05:45)
[2021-10-16 05:46] LABS: Hematocrit 26.6 % (37.0-47.0); Hemoglobin 9.1 g/dL (12.0-15.0); Mean Corpuscular HGB Conc 34.2 g/dl (32-36); Mean Corpuscular Hemoglobin 32.5 pg (26-34); Mean Platelet Volume 9.8 fl (7.4-10.4); Platelet Count Result 211 k/mm3 (150-375); Red Cell Distribution Width 12.9 % (11.5-14.5); White Blood Count 8.4 K/mm3 (4.5-10.0)
[2021-10-16 05:57] LABS: Glucose Point of Care 92 mg/dl (65-105)
[2021-10-16 06:01] LABS: Anion Gap 7 mmol/L (8-16); Blood Urea Nitrogen 18 mg/dL (7-17); Calcium 8.1 mg/dL (8.4-10.2); Carbon Dioxide 26 mmol/L (22-30); Chloride 100 mmol/L (98-107); Estimated CRCL calculation 43 ml/min; Estimated Glomerular Filt Rate > 60; Glucose 102 mg/dL (65-110); Potassium 4.1 mmol/L (3.4-5.0); Sodium 133 mmol/L (137-145)
[2021-10-16 07:38] VITALS: BP 107/51; PULSE 84; RESP 18; TEMP 36.5; O2SAT 100
[2021-10-16] MEDS: ENOXAPARIN 40 MG/0.4 ML SYRINGE SUB-Q (09:11)
[2021-10-16] MEDS: estradioL 1 MG TABLET PO (09:12)
[2021-10-16] MEDS: PANTOPRAZOLE 40 MG TABLET PO (09:13)
[2021-10-16] MEDS: polyethylene glycoL 3350 17 GM POWD.PACK PO (09:14)
[2021-10-16] MEDS: metFORMIN HCL XR 500 MG TAB.SR.24H 1000 MG PO (11:07)
[2021-10-16 11:14] LABS: Glucose Point of Care 127 mg/dl (65-105)
--- NOTE | 2021-10-16 12:21 | PM.DS ---
DS: Admitting Diagnosis Discharge Date 10/16/2021 Admitting Diagnosis Recurrent incisional hernia DS: Discharge Diagnosis Discharge Diagnosis (1) Recurrent incisional hernia: Code(s): K43.2 - Incisional hernia without obstruction or gangrene Status: Acute (2) Essential hypertension: Code(s): I10 - Essential (primary) hypertension Status: Acute DS: Summary Hospital Course Reason for hospitalization: Recurrent incisional hernia Hospital Course: This is a 66-year-old woman who presented for recurrent incisional hernia repair. She underwent open retrorectus recurrent incisional hernia repair with mesh bilateral transversus abdominis release on 10/14/2021. A retro rectus drain was placed at the time of surgery and she was admitted for further recovery. She was slowly advanced over the next couple days. The on postop day 1 her diet was gradually advanced. She was also transitioned from IV pain meds to oral. Her activity was also gradually advanced. Her LAKIA drain was putting out mostly serosanguineous fluid initially. Drain output decreased on postop day 2. She was slightly hyponatremic on postop day 1, but this improved on postop day 2. Her pain was much better controlled on postop day 2 and she was passing flatus. She was discharged on postop day 2. Status at Discharge Functional status at discharge: independent ambulation Overall status at discharge: patient is progressing back to baseline Time Spent with Patient Time attestation: Total time spent providing and/or coordinating discharge services: Time spent: Less than 30 minutes Exam GI: Inspection: incision (Intact with wellington) and other (LAKIA drain is serosanguineous) GI Palp: Yes Tenderness to palpation present (GI) (Incisional) and No Guarding due to palpation present (GI) DS: Data Data Completed and Pending Completed studies during hospitalization: Pending at discharge 10/14/21 08:17 Surgical [PTH] Routine Labs on day of discharge: Labs from last 24 hours 10/16/21 10/16/21 10/16/21 11:05 05:53 05:38 WBC RBC Hgb Hct MCV MCH MCHC RDW Plt Count MPV Sodium 133 L Potassium 4.1 Chloride 100 Carbon Dioxide 26 Anion Gap 7 L BUN 18 H Creatinine 0.90 Estim Creat Clear Calc 43 Estimated GFR > 60 Glucose 102 POC Capillary Glucose 127 H 92 Calcium 8.1 L 10/16/21 10/15/2122 05:38 20:44 17:15 WBC 8.4 RBC 2.80 L Hgb 9.1 L Hct 26.6 L MCV 95.0 MCH 32.5 MCHC 34.2 RDW 12.9 Plt Count 211 MPV 9.8 Sodium Potassium Chloride Carbon Dioxide Anion Gap BUN Creatinine Estim Creat Clear Calc Estimated GFR Glucose POC Capillary Glucose 157 H 120 H Calcium Discharge Plan Discharge Attending physician on discharge: Robbie Erwin Discharging Clinician: Robbie Erwin Patient Disposition: Home, Self-Care Activity: other - see discharge instructions Diet: regular Wound Care Instructions: other - see discharge instructions Discharge Instructions: Remove the Scopolamine patch that was placed behind your ear in 72 hours or less. Wash your hands after touching. DISCHARGE INSTRUCTION SHEET FOR HERNIA, GALLBLADDER AND APPENDIX SURGERIES DR. ERWIN PATIENT TO TAKE HOME 1. May shower in 24 hours, no soaking in bath x 2weeks. 2. Call office for: Wound increasingly painful or bleeding Vomiting Fever of greater than 101 degrees 3. If no bowel movement for three days, take 1 oz. (30 ml) Milk of Magnesia or MiraLax 17g 1 to 2 times daily. 4. No heavy lifting > 10-15 pounds x 6-8 weeks for hernia repairs and 2 weeks for laparoscopic cholecystectomy or appendectomy. 5. No driving for 3 days or while taking narcotic pain medications. 6. Ice to surgical site for 48 hours (30 min on, then 30 min off).
--- NOTE | 2021-10-16 12:22 | PC.NURSE ---
DR ERWIN UPDATED PT'S LISINOPRIL HELD THIS AM FOR BLOOD PRESSURE 107/51. NO NEW ORDERS.
== END 2021-10-16 13:55 | disposition home or self-care (01) ==
LOC: ANHSURGERY 13:16 → ANHSUROVER 13:16
PROVIDERS: Admitting Provider Surgery; PCP Family Medicine; Visit Provider Surgery
PROC: 0WQF0ZZ Repair Abdominal Wall, Open Approach (ICD-10-PCS; CPT 49565; principal; 2021-10-14 07:30)
DX: K43.2 Incisional hernia without obstruction or gangrene (principal); Z90.49 Acquired absence of other specified parts of digestive tract; Z90.710 Acquired absence of both cervix and uterus; I10 Essential (primary) hypertension; E78.5 Hyperlipidemia, unspecified; R73.03 Prediabetes
CPT/HCPCS: 49565; 49568; 15734; 36415; 80048; 82948; 85027; 88300; A9270; C1781; C9290; G0378; J0690; J1100; J1170; J1650; J1885; J2250; J2270; J2405; J2704; J2710; J3010; J7120

== ENCOUNTER 2022-01-16 14:31 | Outpatient (RCR) | payer MEDICARE, SELFPAY ==
[2022-01-16] MEDS: ACETAMINOPHEN 325 MG TABLET 650 MG PO (15:02)
[2022-01-16] MEDS: FAMOTIDINE 20 MG TABLET PO (15:02)
[2022-01-16] MEDS: diphenhydrAMINE HCl CAP 25 MG CAPSULE PO (15:03)
[2022-01-16 15:04] VITALS: PULSE 73; RESP 16; TEMP 36.2; O2SAT 100
[2022-01-16] MEDS: BEBTELOVIMAB 175 MG/2 ML VIAL IV PUSH (15:29)
[2022-01-16 16:15] VITALS: BP 108/61; PULSE 57; RESP 18
== END 2022-01-16 16:00 ==
LOC: AMCINF 14:31
PROVIDERS: Referring Provider Family Medicine; Visit Provider Internal Medicine Hematology & Oncology
DX: U07.1 COVID-19 (principal); I10 Essential (primary) hypertension
CPT/HCPCS: A9270; M0222; Q0222

== ENCOUNTER 2022-03-06 10:21 | Emergency (ER) | payer MEDICARE, SELFPAY ==
[2022-03-06 10:27] VITALS: BP 142/78; PULSE 67; RESP 16; TEMP 36.7; O2SAT 100
--- NOTE | 2022-03-06 10:32 | ED.URI ---
HPI - URI/Sore Throat General Chief Complaint: Upper Respiratory Infection Stated Complaint: SORE THROAT/SWOLLEN TONSIL Time Seen by Provider: 03/06/22 10:37 Source: patient, RN notes reviewed and old records reviewed Mode of arrival: ambulatory Limitations: no limitations History of Present Illness HPI Narrative: 66 year old female who presents to [facility] care with complaints of sore throat to right tonsil region and right tonsillar lymph node region for the past 1 week duration with Wednesday patient developing pus pocket on her left tonsil. Patient reports that she has some sinus allergies and routinely takes Elizabeth and nasal spray daily and takes Singulair at bedtime but has had increased drainage for the past week. Patient reports that she also has had some left sided facial pain MD elicited complaint: sore throat Onset (ago): week(s) (1) Treatments prior to arrival: other (Elizabeth,sinus spray,singulair at night, gargled with salt wate and vinegar.) Related Data Home Medications Medication Instructions Recorded Confirmed Juice Plus 1 tab-cap PO BID 04/01/20 01/16/22 Sbi Powder 1 scoop/day PO DAILY 04/01/20 01/16/22 cholecalciferol (vit D3) 5,500 1 tablet PO DAILY 04/01/20 01/16/22 unit-vit K2 200 mcg tablet fexofenadine 60 mg tablet (Elizabeth 60 mg PO DAILY PRN Congestion 04/01/20 01/16/22 Allergy) niacin 1,000 mg tablet,extended 1,000 mg PO BID 04/01/20 01/16/22 release potassium bicarb 500 mg-magnesium 1 g PO DAILY 04/01/20 01/16/22 300 mg/6.1 gram effervescent powder red yeast rice 600 mg capsule 600 mg PO DAILY 04/01/20 01/16/22 sennosides 8.6 mg tablet (Natural 8.6 mg PO PRN PRN Constipation 12/25/20 01/16/22 Senna Laxative) Methyl B Complex 1 caplet QAM 09/30/21 01/16/22 lisinopril 10 mg tablet 10 mg QAM 09/30/21 01/16/22 magnesium 100 mg tablet 300 mg PO DAILY 09/30/21 01/16/22 montelukast 10 mg tablet 10 mg HS 09/30/21 01/16/22 omeprazole magnesium 20 mg 20 mg PO DAILY PRN Acid Reflux 09/30/21 01/16/22 tablet,delayed release (Prilosec OTC) Allergies Allergy/AdvReac Type Severity Reaction Status Date / Time No Known Allergies Allergy Unknown Verified 01/16/22 15:03 Review of Systems Review of Systems: CONSTITUTIONAL: Denies fever, chills, or sweats. EYES: Denies visual changes, redness, or discharge. ENT: Positive for rhinorrhea, congestion, sore throat, no otalgia positive for left facial pressure CARDIOVASCULAR: Denies chest pain, palpitations, or edema. RESPIRATORY: Denies cough or dyspnea. GASTROINTESTINAL: Denies abdominal pain, nausea, vomiting, or diarrhea. GENITOURINARY: Denies dysuria or hematuria. SKIN: Denies rash or itching. MUSCULOSKELETAL: Denies back pain, joint pain, or myalgia. NEUROLOGIC: Denies headache, numbness, or weakness. PSYCHIATRIC: Denies anxiety or depression. [facility] Past Medical History Medical History Abdominal hernia BMI 26.0-26.9,adult BMI 27.0-27.9,adult Chronic maxillary sinusitis Essential hypertension History of chicken pox (~1960) History of measles History of mumps Mixed hyperlipidemia Prediabetes Surgical History Surgical History History of appendectomy (~05/03/06) History of dilatation and curettage (~02/1981) History of endometrial ablation (~1988) History of hernia repair (~01/08/16) History of hysterectomy with bilateral oophorectomy (~06/1987) History of incisional hernia repair 10/13/21 History of tubal ligation (~01/26/85) Family History Family History Mother , age 90 Family history of primary malignant neoplasm of liver Family history of pancreatic cancer Diabetes mellitus Hypertension Family history of elevated blood lipids Carcinoma of colon Pancreatic cancer Father , age 62 Family history of coronary artery disease Diabetes mellitus
== END 2022-03-06 11:00 | disposition home or self-care (01) ==
PROVIDERS: Emergency Provider Registered Nurse; PCP Family Medicine
DX: J03.90 Acute tonsillitis, unspecified (principal); I10 Essential (primary) hypertension; E78.2 Mixed hyperlipidemia; R73.03 Prediabetes
CPT/HCPCS: 87081; 87880; 99213; G0463

== ENCOUNTER 2022-04-15 10:02 | Outpatient (CLI) | payer MEDICARE, SELFPAY ==
--- NOTE | ~2022-04-15 | MM_ITS ---
EXAMINATION: MM screening kar BI w tess HISTORY: Screening. Breast reduction surgery and 2020. TECHNIQUE: Craniocaudal and mediolateral oblique 3-D tomosynthesis images were obtained and synthetic 2-D images were generated. CAD analysis was submitted and interpreted. COMPARISON: Comparison to multiple prior studies sequentially, with oldest reviewed study dated 11/16. BREAST PARENCHYMAL COMPOSITION: Breast composed of scattered areas of fibroglandular density FINDINGS: There is bilateral distortion of the breast consistent with interval breast reduction surge ry. There is developing fat necrosis in the right breast, lower centrally. There is no evidence of riley spicious mass, calcification, or architectural distortion to suggest malignancy in either breast. The re has been no suspicious interval change. IMPRESSION: 1. No mammographic evidence of malignancy. 2. Recommend routine screening mammography in one year. BI-RADS Category 2: Benign finding(s). Reviewed, dictated and finalized at location L.
== END 2022-04-15 10:03 | disposition home or self-care (01) ==
LOC: ANHIMG 10:04
PROVIDERS: PCP Family Medicine; Visit Provider Family Medicine
DX: Z12.31 Encounter for screening mammogram for malignant neoplasm of breast (principal)
CPT/HCPCS: 77063; 77067

== ENCOUNTER 2022-10-15 09:50 | Outpatient (CLI) | payer MEDICARE, SELFPAY | END 2022-10-15 09:51 | disposition home or self-care (01) | LOC: ANHAUDIO 09:52 | PROVIDERS: PCP Family Medicine; Visit Provider Family Medicine | DX: H90.41 Sensorineural hearing loss, unilateral, right ear, with unrestricted hearing on the contralateral side (principal) | CPT/HCPCS: 92557; 92567 ==

== ENCOUNTER 2022-11-24 13:02 | Emergency (ER) | payer MEDICARE, SELFPAY ==
[2022-11-24 13:12] VITALS: BP 147/76; PULSE 70; RESP 16; TEMP 36.4; O2SAT 100
--- NOTE | 2022-11-24 13:12 | ED.EXTPRO ---
HPI - Extremity Problem General Chief complaint: Extremity Problem,Nontraumatic Stated complaint: rt/lt big toes swelling Time Seen by Provider: 11/24/22 13:12 Source: patient Mode of arrival: ambulatory Limitations: no limitations History of Present Illness HPI Narrative: 57 oz male presented for complaint of bilateral great toes itchy, red with bumps, and swollen over the last week. Endorses onset of symptoms started after using tea tree oil to both toes as recommended by wind technician while getting a pedicure. She states this was intended to prevent fungus. She used the oil for only a few days before symptoms developed, and she stopped using it. States the bed sheets at night cause pain/irritation. Has applied hydrocortisone and first aide cream to the sites. Denies any other locations of similar symptoms. Denies drainage, or decreased ROM, decreased sensation, n/v/d/f/c. Related Data Home Medications Medication Instructions Recorded Confirmed cholecalciferol (vit D3) 5,500 1 tablet PO DAILY 04/01/20 11/24/22 unit-vit K2 200 mcg tablet fexofenadine 60 mg tablet (Elizabeth 60 mg PO DAILY PRN Congestion 04/01/20 11/24/22 Allergy) niacin 1,000 mg tablet,extended 1,000 mg PO BID 04/01/20 11/24/22 release potassium bicarb 500 mg-magnesium 1 g PO DAILY 04/01/20 11/24/22 300 mg/6.1 gram effervescent powder sennosides 8.6 mg tablet (Natural 8.6 mg PO PRN PRN Constipation 12/25/20 11/24/22 Senna Laxative) omeprazole magnesium 20 mg 20 mg PO DAILY PRN Acid Reflux 09/30/21 11/24/22 tablet,delayed release (Prilosec OTC) Allergies Allergy/AdvReac Type Severity Reaction Status Date / Time No Known Allergies Allergy Unknown Verified 11/24/22 13:12 Review of Systems Review of Systems: CONSTITUTIONAL: Denies body aches, fever, chills, or sweats. EYES: Denies visual changes, redness, or discharge. ENT: Denies rhinorrhea, congestion CARDIOVASCULAR: Denies chest pain, palpitations, or edema. RESPIRATORY: Denies cough or dyspnea. GASTROINTESTINAL: Denies abdominal pain, nausea, vomiting, or diarrhea. SKIN: per HPI MUSCULOSKELETAL: Denies back pain, joint pain, or myalgia. NEUROLOGIC: Denies headache, numbness, tingling, or weakness. [facility] Past Medical History Medical History Abdominal hernia BMI 26.0-26.9,adult BMI 27.0-27.9,adult Chronic maxillary sinusitis Chronic neck pain Chronic pain of both shoulders Essential hypertension History of chicken pox (~1960) History of measles History of mumps Macromastia Mixed hyperlipidemia Prediabetes Recurrent incisional hernia Surgical History Surgical History H/O cataract removal with insertion of prosthetic lens H/O reduction mammoplasty H/O ventral hernia repair History of appendectomy (~05/03/06) History of dilatation and curettage (~02/1981) History of endometrial ablation (~1988) History of hernia repair (~01/08/16) History of hysterectomy with bilateral oophorectomy (~06/1987) History of incisional hernia repair 10/13/21 History of tubal ligation (~01/26/85) Family History Family History Mother , age 90 Family history of primary malignant neoplasm of liver Family history of pancreatic cancer Diabetes mellitus Hypertension Family history of elevated blood lipids Carcinoma of colon Pancreatic cancer Father , age 62 Family history of coronary artery disease Diabetes mellitus Heart disease Hyperlipidemia Sibling Diabetes mellitus Seizure Mental disability Sibling Heart disease ALS (amyotrophic lateral sclerosis) Sibling , age 32 Liver cirrhosis Grandparent Breast cancer Grandparent Heart disease Social History Social History Smoking status: Never
[2022-11-24 13:18] VITALS: BP 147/76; PULSE 70; RESP 16; TEMP 36.4; O2SAT 100
== END 2022-11-24 13:33 | disposition home or self-care (01) ==
PROVIDERS: Emergency Provider Nurse Practitioner Family; PCP Family Medicine
DX: L30.9 Dermatitis, unspecified (principal); I10 Essential (primary) hypertension; E78.2 Mixed hyperlipidemia
CPT/HCPCS: 99213; G0463

== ENCOUNTER 2022-12-12 11:49 | Emergency (ER) | payer MEDICARE, SELFPAY ==
[2022-12-12 12:04] VITALS: BP 136/70; PULSE 67; RESP 16; TEMP 36.4; O2SAT 100
--- NOTE | 2022-12-12 12:49 | ED.URI ---
HPI - URI/Sore Throat General Chief Complaint: Upper Respiratory Infection Stated Complaint: SINUS CONGESTION Time Seen by Provider: 12/12/22 12:52 Source: patient and RN notes reviewed Mode of arrival: ambulatory Limitations: no limitations History of Present Illness HPI Narrative: 67-year-old female presented for complaint of sinus pressure and congestion with sore throat for over 9 days. She endorses stopping her antihistamines over week ago, as she was instructed prior to being evaluated by an grain shoveler. She states she had the symptoms when she was seen by him 6 days ago, was advised to resume Elizabeth and start fluticasone spray. Also using neti pot. She denies improvement in symptoms. She states she contacted the grain shoveler yesterday who advised to continue to monitor symptoms. States she is unable to sleep flat at night due to sinus congestion and drainage. She denies shortness of breath, wheezing, nausea, vomiting, diarrhea, fevers or chills. MD elicited complaint: cough Related Data Home Medications Medication Instructions Recorded Confirmed cholecalciferol (vit D3) 5,500 1 tablet PO DAILY 04/01/20 12/03/22 unit-vit K2 200 mcg tablet fexofenadine 60 mg tablet (Elizabeth 60 mg PO DAILY PRN Congestion 04/01/20 12/03/22 Allergy) niacin 1,000 mg tablet,extended 1,000 mg PO BID 04/01/20 12/03/22 release potassium bicarb 500 mg-magnesium 1 g PO DAILY 04/01/20 12/03/22 300 mg/6.1 gram effervescent powder sennosides 8.6 mg tablet (Natural 8.6 mg PO PRN PRN Constipation 12/25/20 12/03/22 Senna Laxative) omeprazole magnesium 20 mg 20 mg PO DAILY PRN Acid Reflux 09/30/21 12/03/22 tablet,delayed release (Prilosec OTC) Allergies Allergy/AdvReac Type Severity Reaction Status Date / Time No Known Allergies Allergy Unknown Verified 12/12/22 12:54 Review of Systems Review of Systems: CONSTITUTIONAL: Denies malaise, chills, sweats, fever EYES: Denies visual changes, redness, or discharge ENT: Reports rhinorrhea, congestion, sinus pain, otalgia, sore throat CARDIOVASCULAR: Denies chest pain, palpitations, edema RESPIRATORY: Reports cough, post nasal drainage. Denies dyspnea GASTROINTESTINAL: Denies abdominal pain, nausea, vomiting, diarrhea SKIN: Denies rash or itching MUSCULOSKELETAL: Denies myalgia [facility] Past Medical History Medical History Abdominal hernia BMI 26.0-26.9,adult BMI 27.0-27.9,adult Chronic maxillary sinusitis Chronic neck pain Chronic pain of both shoulders Essential hypertension History of chicken pox (~1960) History of measles History of mumps Macromastia Mixed hyperlipidemia Prediabetes Recurrent incisional hernia Surgical History Surgical History H/O cataract removal with insertion of prosthetic lens H/O reduction mammoplasty H/O ventral hernia repair History of appendectomy (~05/03/06) History of dilatation and curettage (~02/1981) History of endometrial ablation (~1988) History of hernia repair (~01/08/16) History of hysterectomy with bilateral oophorectomy (~06/1987) History of incisional hernia repair 10/13/21 History of tubal ligation (~01/26/85) Family History Family History Mother , age 90 Family history of primary malignant neoplasm of liver Family history of pancreatic cancer Diabetes mellitus Hypertension Family history of elevated blood lipids Carcinoma of colon Pancreatic cancer Father , age 62 Family history of coronary artery disease Diabetes mellitus Heart disease Hyperlipidemia Sibling Diabetes mellitus Seizure Mental disability Sibling Heart disease ALS (amyotrophic lateral sclerosis) Sibling , age 32 Liver cirrhosis Grandparent Breast cancer Grandparent Heart disease Social History Social History (Re
== END 2022-12-12 13:28 | disposition home or self-care (01) ==
PROVIDERS: Emergency Provider Nurse Practitioner Family; PCP Family Medicine
DX: J06.9 Acute upper respiratory infection, unspecified (principal); I10 Essential (primary) hypertension; E78.2 Mixed hyperlipidemia
CPT/HCPCS: 99213; G0463

== ENCOUNTER 2023-01-22 14:00 | Outpatient (CLI) | payer MEDICARE, SELFPAY ==
[2023-01-22 19:07] LABS: Iron 35 ug/dL (37-170)
[2023-01-22 19:21] LABS: Percent Iron Saturation 7 % (20-50)
[2023-01-22 19:44] LABS: Ferritin 6.89 ng/mL (11.1-264)
[2023-01-22 20:16] LABS: Folic Acid > 20.0 ng/mL (2.76->20)
== END 2023-01-22 14:01 | disposition home or self-care (01) ==
LOC: ANHGOSHLAB 14:02
PROVIDERS: PCP Family Medicine; Visit Provider Physician Assistant
DX: D64.9 Anemia, unspecified (principal)
CPT/HCPCS: 36415; 82607; 82728; 82746; 83540; 83550

== ENCOUNTER 2023-01-25 11:24 | Outpatient (NON) | payer MEDICARE, SELFPAY ==
[2023-01-25 14:14] LABS: IFOB Positive Control Positive; Immunochemical Fecal Occult Bl Negative (N)
== END 2023-01-25 11:25 | disposition home or self-care (01) ==
LOC: ANHGOSHLAB 11:26
PROVIDERS: PCP Family Medicine; Visit Provider Physician Assistant
DX: D64.9 Anemia, unspecified (principal)
CPT/HCPCS: 82274

== ENCOUNTER 2023-03-26 13:26 | Outpatient (CLI) | payer MEDICARE, SELFPAY ==
[2023-03-26 15:23] LABS: Basophils Percent Auto 0.5 % (0.2-1.2); Eosinophils Absolute Auto 0.1 K/mm3 (0-0.3); Hematocrit 37.2 % (37.0-47.0); Hemoglobin 12.1 g/dL (12.0-15.0); Immature Granulocyte Absolute 0.01 K/mm3 (0.00-0.031); Immature Granulocyte Percent A 0.2 % (0-0.5); Lymphocytes Absolute Auto 2.05 K/mm3 (0.9-3.2); Lymphocytes Percent Auto 33.9 % (18.3-44.2); Mean Corpuscular HGB Conc 32.5 g/dl (32-36); Mean Corpuscular Hemoglobin 30.7 pg (26-34); Mean Corpuscular Volume 94.4 fl (80-100); Mean Platelet Volume 9.6 fl (7.4-10.4); Monocytes Absolute Auto 0.4 K/mm3 (0.1-0.6); Monocytes Percent Auto 6.8 % (2.6-8.5); Neutrophils Absolute Auto 3.5 K/mm3 (1.3-6.7); Neutrophils Percent Auto 57.6 % (45.5-73.1); Platelet Count Result 273 k/mm3 (150-375); Red Blood Count 3.94 M/mm3 (4.2-5.4); Red Cell Distribution Width 14.9 % (11.5-14.5); White Blood Count 6.1 K/mm3 (4.5-10.0)
[2023-03-26 17:18] LABS: Iron 51 ug/dL (37-170)
[2023-03-26 17:32] LABS: Percent Iron Saturation 11 % (20-50)
[2023-03-26 17:54] LABS: Ferritin 8.37 ng/mL (11.1-264)
[2023-03-26 19:57] LABS: Folic Acid > 20.0 ng/mL (2.76->20); Vitamin B12 > 1000.0 pg/mL (239-931)
== END 2023-03-26 13:27 | disposition home or self-care (01) ==
LOC: ANHGOSHLAB 13:27
PROVIDERS: PCP Family Medicine; Visit Provider Physician Assistant
DX: D64.9 Anemia, unspecified (principal)
CPT/HCPCS: 36415; 82607; 82728; 82746; 83540; 83550; 85025

== ENCOUNTER 2023-06-04 12:52 | Outpatient (CLI) | payer MEDICARE, SELFPAY ==
[2023-06-04 18:55] LABS: Basophils Percent Auto 0.7 % (0.2-1.2); Eosinophils Absolute Auto 0.1 K/mm3 (0-0.3); Eosinophils Percent Auto 2.3 % (0-4.4); Hematocrit 40.2 % (37.0-47.0); Hemoglobin 13.3 g/dL (12.0-15.0); Immature Granulocyte Absolute 0.01 K/mm3 (0.00-0.031); Immature Granulocyte Percent A 0.2 % (0-0.5); Lymphocytes Absolute Auto 2.27 K/mm3 (0.9-3.2); Lymphocytes Percent Auto 40.8 % (18.3-44.2); Mean Corpuscular HGB Conc 33.1 g/dl (32-36); Mean Corpuscular Hemoglobin 32.2 pg (26-34); Mean Corpuscular Volume 97.3 fl (80-100); Mean Platelet Volume 10.4 fl (7.4-10.4); Monocytes Absolute Auto 0.4 K/mm3 (0.1-0.6); Monocytes Percent Auto 6.8 % (2.6-8.5); Neutrophils Absolute Auto 2.7 K/mm3 (1.3-6.7); Neutrophils Percent Auto 49.2 % (45.5-73.1); Platelet Count Result 294 k/mm3 (150-375); Red Blood Count 4.13 M/mm3 (4.2-5.4); Red Cell Distribution Width 13.4 % (11.5-14.5); White Blood Count 5.6 K/mm3 (4.5-10.0)
[2023-06-04 19:09] LABS: Iron 151 ug/dL (37-170)
[2023-06-04 19:26] LABS: Percent Iron Saturation 36 % (20-50)
== END 2023-06-04 12:53 | disposition home or self-care (01) ==
LOC: ANHGOSHLAB 12:55
PROVIDERS: PCP Family Medicine; Visit Provider Physician Assistant
DX: D50.9 Iron deficiency anemia, unspecified (principal)
CPT/HCPCS: 36415; 82728; 83540; 83550; 85025

== ENCOUNTER 2023-06-22 14:44 | Outpatient (CLI) | payer MEDICARE, SELFPAY ==
--- NOTE | ~2023-06-22 | MM_ITS ---
EXAMINATION: MM screening kar BI w tess HISTORY: Screening mammogram TECHNIQUE: Craniocaudal and mediolateral oblique 3-D tomosynthesis images were obtained and synthetic 2-D images were generated. CAD analysis was submitted and interpreted. COMPARISON: 04/15/2022 bilateral screening mammogram BREAST PARENCHYMAL COMPOSITION: There are scattered areas of fibroglandular density. FINDINGS: Postoperative change of bilateral breast reduction surgery, including benign oil cysts.. Th ere is no evidence of suspicious mass, calcification, or architectural distortion to suggest malignan cy in either breast. There has been no suspicious interval change. IMPRESSION: 1. No mammographic evidence of malignancy. 2. Recommend routine screening mammography in one year. BI-RADS Category 2: Benign finding(s). Reviewed, dictated and finalized at location A.
== END 2023-06-22 14:45 | disposition home or self-care (01) ==
PROVIDERS: PCP Family Medicine; Visit Provider Family Medicine
DX: Z12.31 Encounter for screening mammogram for malignant neoplasm of breast (principal)
CPT/HCPCS: 77063; 77067

== ENCOUNTER 2023-09-07 10:35 | Outpatient (CLI) | payer MEDICARE, SELFPAY ==
[2023-09-07 12:56] LABS: Basophils Percent Auto 0.8 % (0.2-1.2); Eosinophils Absolute Auto 0.2 K/mm3 (0-0.3); Eosinophils Percent Auto 3.6 % (0-4.4); Hematocrit 39.4 % (37.0-47.0); Hemoglobin 12.9 g/dL (12.0-15.0); Immature Granulocyte Absolute 0.01 K/mm3 (0.00-0.031); Immature Granulocyte Percent A 0.2 % (0-0.5); Lymphocytes Absolute Auto 1.96 K/mm3 (0.9-3.2); Lymphocytes Percent Auto 41.3 % (18.3-44.2); Mean Corpuscular HGB Conc 32.7 g/dl (32-36); Mean Corpuscular Hemoglobin 32.9 pg (26-34); Mean Corpuscular Volume 100.5 fl (80-100); Mean Platelet Volume 10.6 fl (7.4-10.4); Monocytes Absolute Auto 0.4 K/mm3 (0.1-0.6); Monocytes Percent Auto 7.4 % (2.6-8.5); Neutrophils Absolute Auto 2.2 K/mm3 (1.3-6.7); Neutrophils Percent Auto 46.7 % (45.5-73.1); Platelet Count Result 273 k/mm3 (150-375); Red Blood Count 3.92 M/mm3 (4.2-5.4); Red Cell Distribution Width 12.4 % (11.5-14.5); White Blood Count 4.8 K/mm3 (4.5-10.0)
== END 2023-09-07 10:36 | disposition home or self-care (01) ==
PROVIDERS: PCP Family Medicine; Visit Provider Physician Assistant
DX: D50.9 Iron deficiency anemia, unspecified (principal)
CPT/HCPCS: 36415; 85025

== ENCOUNTER 2023-10-29 11:50 | Outpatient (CLI) | payer MEDICARE, SELFPAY ==
[2023-10-29 19:01] LABS: Basophils Percent Auto 0.5 % (0.2-1.2); Eosinophils Absolute Auto 0.1 K/mm3 (0-0.3); Eosinophils Percent Auto 1.2 % (0-4.4); Hematocrit 39.9 % (37.0-47.0); Hemoglobin 13.4 g/dL (12.0-15.0); Immature Granulocyte Absolute 0.01 K/mm3 (0.00-0.031); Immature Granulocyte Percent A 0.2 % (0-0.5); Lymphocytes Absolute Auto 1.72 K/mm3 (0.9-3.2); Lymphocytes Percent Auto 26.2 % (18.3-44.2); Mean Corpuscular HGB Conc 33.6 g/dl (32-36); Mean Corpuscular Hemoglobin 33.1 pg (26-34); Mean Corpuscular Volume 98.5 fl (80-100); Mean Platelet Volume 10.6 fl (7.4-10.4); Monocytes Absolute Auto 0.3 K/mm3 (0.1-0.6); Monocytes Percent Auto 4.4 % (2.6-8.5); Neutrophils Absolute Auto 4.4 K/mm3 (1.3-6.7); Neutrophils Percent Auto 67.5 % (45.5-73.1); Platelet Count Result 289 k/mm3 (150-375); Red Blood Count 4.05 M/mm3 (4.2-5.4); Red Cell Distribution Width 12.4 % (11.5-14.5); White Blood Count 6.6 K/mm3 (4.5-10.0)
[2023-10-29 19:32] LABS: Alanine Aminotransferase 17 U/L (6-35); Albumin Level 3.9 g/dL (3.5-5.1); Alkaline Phosphatase 56 U/L (38-126); Anion Gap 6 mmol/L (8-16); Aspartate Amino Transferase 36 U/L (14-36); Bilirubin,Total 0.3 mg/dL (0.2-1.3); Blood Urea Nitrogen 11 mg/dL (7-17); Calcium 9.4 mg/dL (8.4-10.2); Carbon Dioxide 27 mmol/L (22-30); Chloride 103 mmol/L (98-107); Estimated Glomerular Filt Rate > 60; Glucose 106 mg/dL (65-110); Potassium 4.4 mmol/L (3.4-5.0); Sodium 136 mmol/L (137-145)
[2023-10-29 19:42] LABS: Erythrocyte Sedimentation Rate 9 mm/hr (0-20)
[2023-10-29 20:19] LABS: Hemoglobin A1C 5.5 % (<5.7)
[2023-10-29 20:46] LABS: Folic Acid > 20.0 ng/mL (2.76->20)
== END 2023-10-29 11:51 | disposition home or self-care (01) ==
LOC: ANHGOSHLAB 11:52
PROVIDERS: PCP Family Medicine; Visit Provider Physician Assistant
DX: U07.1 COVID-19 (principal); Z79.899 Other long term (current) drug therapy; R53.83 Other fatigue; D50.9 Iron deficiency anemia, unspecified; I10 Essential (primary) hypertension
CPT/HCPCS: 36415; 80053; 82607; 82728; 82746; 83036; 84443; 85025; 85652

== ENCOUNTER 2023-11-02 11:23 | Emergency (ER) | payer MEDICARE, SELFPAY ==
--- NOTE | 2023-11-02 11:31 | ED.URI ---
HPI - URI/Sore Throat General Chief Complaint: Upper Respiratory Infection Stated Complaint: SINUS Time Seen by Provider: 11/02/23 11:31 Source: patient Mode of arrival: ambulatory Limitations: no limitations History of Present Illness HPI Narrative: Marija is a 68-year-old female patient presenting to the clinic today with complaints of possible sinus infection. She reports she has been having a runny nose with clear nasal drainage since August. Also reports that she has cough and scratchy throat-symptoms worse when she lays flat. Denies any fever or chills. Reports a left posterior/lateral headache. Pain is dull-rating 6/10 currently. States that she discussed her headache with her primary care provider and has an MRI scheduled for . Does take Tylenol/Motrin for the headache and this helps alleviate the pain. Has had recent blood work completed in states she is anemic again. Blood pressure is 143/85 with heart rate of 98 beats per minute in the clinic today. MD elicited complaint: cough, sore throat, nasal congestion and other (Headache) Related Data Home Medications Medication Instructions Recorded Confirmed cholecalciferol (vit D3) 137.5 mcg 1 tablet PO DAILY 04/01/20 07/22/23 (5,500 unit)-vit K2 200 mcg tablet fexofenadine 60 mg tablet (Elizabeth 60 mg PO DAILY PRN Congestion 04/01/20 07/22/23 Allergy) niacin 1,000 mg tablet,extended 1,000 mg PO BID 04/01/20 07/22/23 release potassium bicarb 500 mg-magnesium 1 g PO DAILY 04/01/20 07/22/23 300 mg/6.1 gram effervescent powder sennosides 8.6 mg tablet (Natural 8.6 mg PO PRN PRN Constipation 12/25/20 07/22/23 Senna Laxative) fluticasone propionate 50 1 spray intranasal DAILY 01/22/23 07/22/23 mcg/actuation nasal spray,suspension (Allergy Relief (fluticasone)) ipratropium bromide 21 mcg (0.03 2 spray intranasal BID 01/22/23 07/22/23 %) nasal spray [id number] 250 mg-dha 90 1 cap PO DAILY 01/22/23 07/22/23 mg-epa 160 [id number] capsule (Ocuvite Adult 50 Plus) mecobalamin (vitamin B12) 1,000 1,000 mcg PO DAILY 01/25/23 07/22/23 mcg chewable tablet ferrous sulfate 325 mg (65 mg 325 mg PO BID 11/01/23 iron) tablet mecobalamin (vitamin B12) 1,000 1,000 mcg PO DAILY 11/01/23 mcg chewable tablet Allergies Allergy/AdvReac Type Severity Reaction Status Date / Time No Known Allergies Allergy Unknown Verified 07/22/23 13:09 Review of Systems Review of Systems: Pertinent positives per HPI. Patient denies any fever, chills, rash, visual changes, shortness of breath, chest pain, palpitations, nausea, vomiting, diarrhea, constipation, abdominal pain, or any urinary issues. [facility] Past Medical History Medical History Abdominal hernia BMI 26.0-26.9,adult BMI 27.0-27.9,adult Chronic maxillary sinusitis Chronic neck pain Chronic pain of both shoulders Essential hypertension History of chicken pox (~1960) History of measles History of mumps Macromastia Mixed hyperlipidemia Prediabetes Recurrent incisional hernia Surgical History Surgical History H/O cataract removal with insertion of prosthetic lens H/O reduction mammoplasty H/O ventral hernia repair History of appendectomy (~05/03/06) History of dilatation and curettage (~02/1981) History of endometrial ablation (~1988) History of hernia repair (~01/08/16) History of hysterectomy with bilateral oophorectomy (~06/1987) History of incisional hernia repair 10/13/21 History of tubal ligation (~01/26/85) Family History Family History Mother , age 90 Family history of primary malignant neoplasm of liver Family history of pancreatic cancer Diabetes mellitus Hypertension Family history of elevated blood lipids Carcinoma of colon Pancreatic cancer Father , age 62
[2023-11-02 11:32] VITALS: BP 143/85; PULSE 98; RESP 18; TEMP 36.9; O2SAT 100
== END 2023-11-02 11:50 | disposition home or self-care (01) ==
PROVIDERS: Emergency Provider Nurse Practitioner Family; PCP Family Medicine
DX: R09.82 Postnasal drip (principal); J30.89 Other allergic rhinitis; R51.9 Headache, unspecified; I10 Essential (primary) hypertension; E78.2 Mixed hyperlipidemia; R73.03 Prediabetes
CPT/HCPCS: 99213; G0463

== ENCOUNTER → 2023-11-09 13:41 | Outpatient (CLI) | payer MEDICARE, SELFPAY ==
--- NOTE | ~2023-11-09 | MR_ITS ---
EXAMINATION: MR brain IAC wo/w con DATE: 11/09/2023 15:01 INDICATION: Headache, unspecified. TECHNIQUE: Magnetic resonance imaging (MRI) of the brain, brainstem, and internal auditory canals was performed without and with 12 mL MultiHance intravenous contrast. COMPARISON: Head CT 02/27/2019 FINDINGS: There are scattered areas of nonspecific increased T2-weighted signal intensity in the cere bral white matter, which is within normal limits for the patient's age. There is no intracranial hemo rrhage, acute infarction, or abnormal intracranial mass lesion. The ventricles are normal in size. Th ere is mucosal thickening in the paranasal sinuses. There are likely changes of ocular lens replaceme nt surgeries. There is a trace left mastoid effusion. The internal auditory canals, inner ears, and t ympanic cavities are normal. IMPRESSION: 1. Normal aging brain. Reviewed, dictated and finalized at location A. [facility] IMPRESSION: 1. Normal aging brain.
== END ==
PROVIDERS: PCP Family Medicine; Visit Provider Physician Assistant
DX: R51.9 Headache, unspecified (principal)
CPT/HCPCS: 70553; A9577

== ENCOUNTER 2024-01-27 08:47 | Outpatient (CLI) | payer MEDICARE, SELFPAY ==
[2024-01-27 19:07] LABS: Basophils Absolute Auto 0.1 K/mm3 (0.0-0.1); Eosinophils Absolute Auto 0.1 K/mm3 (0-0.3); Eosinophils Percent Auto 2.6 % (0-4.4); Hematocrit 43.1 % (37.0-47.0); Hemoglobin 14.6 g/dL (12.0-15.0); Immature Granulocyte Absolute 0.01 K/mm3 (0.00-0.031); Immature Granulocyte Percent A 0.2 % (0-0.5); Lymphocytes Absolute Auto 2.09 K/mm3 (0.9-3.2); Lymphocytes Percent Auto 41.2 % (18.3-44.2); Mean Corpuscular HGB Conc 33.9 g/dl (32-36); Mean Corpuscular Hemoglobin 33.3 pg (26-34); Mean Corpuscular Volume 98.2 fl (80-100); Mean Platelet Volume 10.1 fl (7.4-10.4); Monocytes Absolute Auto 0.3 K/mm3 (0.1-0.6); Monocytes Percent Auto 6.5 % (2.6-8.5); Neutrophils Absolute Auto 2.5 K/mm3 (1.3-6.7); Neutrophils Percent Auto 48.5 % (45.5-73.1); Platelet Count Result 330 k/mm3 (150-375); Red Blood Count 4.39 M/mm3 (4.2-5.4); Red Cell Distribution Width 11.9 % (11.5-14.5); White Blood Count 5.1 K/mm3 (4.5-10.0)
[2024-01-27 19:14] LABS: Anion Gap 9 mmol/L (4-12); Blood Urea Nitrogen 17 mg/dL (7-17); Calcium 10.4 mg/dL (8.4-10.2); Carbon Dioxide 25 mmol/L (22-30); Chloride 105 mmol/L (98-107); Estimated Glomerular Filt Rate > 60; Glucose 97 mg/dL (65-110); Potassium 4.9 mmol/L (3.4-5.0); Sodium 139 mmol/L (137-145)
== END 2024-01-27 08:48 | disposition home or self-care (01) ==
LOC: ANHGOSHLAB 08:49
PROVIDERS: PCP Family Medicine; Visit Provider Physician Assistant
DX: E53.8 Deficiency of other specified B group vitamins (principal); I10 Essential (primary) hypertension; U07.1 COVID-19; R79.0 Abnormal level of blood mineral
CPT/HCPCS: 36415; 80048; 82607; 82728; 85025

== ENCOUNTER 2024-07-03 15:49 | Outpatient (CLI) | payer MEDICARE, SELFPAY ==
--- NOTE | ~2024-07-03 | CT_ITS ---
CT sinus wo con Ordering provider: Charles Gutiérrez MD History: . CHRONIC SINUSITIS . Comparison: None. Technique: Thin slice Scans CT of the paranasal sinuses was performed with coronal and sagittal refor matted images. No IV contrast. . Automated exposure control and iterative reconstruction technique w ere employed. The dose-length product was 287.97 mGy-cm. Findings: NASAL SEPTUM: Mild left nasal septal deviation. OSTEOMEATAL UNITS: Bilaterally patent. NASAL TURBINATES AND NASOPHARYNX: Normal PARANASAL SINUSES: Well aerated. Bilateral maxillary sinus disease. VISUALIZED MASTOIDS: Normal as visualized. Possibility of dehiscent superior semicircular canal. Clin ical correlation and CT temporal bones is advised. BONES: Normal. SUPERFICIAL SOFT TISSUES/VISUALIZED BRAIN PARENCHYMA: Normal. IMPRESSION: Bilateral maxillary sinus disease. Mild left nasal septal deviation. 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 Further evaluation advised. Reviewed, dictated and finalized at location A.
== END 2024-07-03 15:50 | disposition home or self-care (01) ==
LOC: MICIMG 15:49
PROVIDERS: PCP Family Medicine; Visit Provider Allergy & Immunology
DX: J32.9 Chronic sinusitis, unspecified (principal)
CPT/HCPCS: 70486

== ENCOUNTER 2024-07-18 07:53 | Outpatient (CLI) | payer MEDICARE, SELFPAY ==
--- NOTE | ~2024-07-18 | MM_ITS ---
EXAMINATION: MM screening kar BI w tess HISTORY: Screening TECHNIQUE: Craniocaudal and mediolateral oblique 3-D tomosynthesis images were obtained and synthetic 2-D images were generated. CAD analysis was submitted and interpreted. COMPARISON: Comparison to multiple prior studies sequentially, with oldest reviewed study dated 04/15. BREAST PARENCHYMAL COMPOSITION: Not dense: There are scattered areas of fibroglandular density. FINDINGS: There is no evidence of suspicious mass, calcification, or architectural distortion to sugg est malignancy in either breast. There has been no suspicious interval change. IMPRESSION: 1. No mammographic evidence of malignancy. 2. Recommend routine screening mammography in one year. BI-RADS Category 1: Negative Reviewed, dictated and finalized at location B.
--- NOTE | ~2024-07-18 | DEXA_ITS ---
Bone Density Report Name: LISA TAYLOR Age: 69 Sex: Female Ethnicity: White Date of : 1955 Indication: postmenopausal; screening for osteoporosis; parental hip fracture; height loss; hysterectomy; Referring Provider: NARGIS NIX Study: Bone densitometry was performed. Exam Date: July 18, 2024 Accession number: [id number] Bone Density: Region BMD T-score Z-score Classification AP Spine(L1-L4) 1.055 0.1 2.1 Normal Femoral Neck (Left) 0.821 -0.2 1.5 Normal Total Hip (Left) 1.028 0.7 2.2 Normal Femoral Neck (Right) 0.797 -0.5 1.3 Normal Total Hip (Right) 1.028 0.7 2.2 Normal Total Hip Mean 1.028 0.7 2.2 Normal World Health Organization criteria for BMD impression classify patients as: Normal (T-score at or above -1.0), Osteopenia (T-score between -1.0 and -2.5), or Osteoporosis (T-score at or below -2.5). 10-year Fracture Risk: FRAX not reported because: All T-scores for Spine Total, Hip Total, Femoral Neck at or above -1.0 Clinical Information Provided by Patient: Parent has had a hip fracture Has used the following medications: Vitamin D Has the following medical conditions: Hysterectomy Patient maximum height was 61.75 Menopause Age: 41 Drinks caffeinated beverages Onset of menses at age 13 Number of children 2 Impression: The patient has normal bone mass. The patient has risk factors, including: parental hip fracture. Discussion: BONE DENSITY IS ABOVE THE MINIMUM DESIRABLE LEVEL AT ALL SKELETAL SITES TESTED. This patient?s bone mineral density is above the minimum desirable level (T-score -1.0 or better) at all sites measured. The patient should follow a healthful lifestyle (good nutrition with adequate calcium and vitamin D, and appropriate weight-bearing exercise). Follow-Up: Consider repeating this study in 5 years or sooner if there is some new clinical indication. Reported by: MELISSA on 07/18/2024 8:33:00 AM. Reviewed, dictated and finalized at location [place]
== END 2024-07-18 07:54 | disposition home or self-care (01) ==
LOC: ANHIMG 07:56
PROVIDERS: PCP Family Medicine; Visit Provider Nurse Practitioner Family
DX: Z12.31 Encounter for screening mammogram for malignant neoplasm of breast (principal); Z78.0 Asymptomatic menopausal state
CPT/HCPCS: 77063; 77067; 77080

== ENCOUNTER 2024-08-02 12:44 | Outpatient (CLI) | payer MEDICARE, SELFPAY ==
[2024-08-02 20:41] LABS: Iron 115 ug/dL (37-170)
[2024-08-02 20:51] LABS: Percent Iron Saturation 33 % (20-50)
[2024-08-02 20:52] LABS: Basophils Percent Auto 0.6 % (0.2-1.2); Eosinophils Absolute Auto 0.1 K/mm3 (0-0.3); Eosinophils Percent Auto 2.1 % (0-4.4); Hematocrit 39.1 % (37.0-47.0); Hemoglobin 12.9 g/dL (12.0-15.0); Immature Granulocyte Absolute 0.01 K/mm3 (0.00-0.031); Immature Granulocyte Percent A 0.2 % (0-0.5); Lymphocytes Absolute Auto 1.98 K/mm3 (0.9-3.2); Lymphocytes Percent Auto 37.9 % (18.3-44.2); Mean Corpuscular Hemoglobin 33.2 pg (26-34); Mean Corpuscular Volume 100.8 fl (80-100); Mean Platelet Volume 10.8 fl (7.4-10.4); Monocytes Absolute Auto 0.3 K/mm3 (0.1-0.6); Monocytes Percent Auto 5.4 % (2.6-8.5); Neutrophils Absolute Auto 2.8 K/mm3 (1.3-6.7); Neutrophils Percent Auto 53.8 % (45.5-73.1); Platelet Count Result 244 k/mm3 (150-375); Red Blood Count 3.88 M/mm3 (4.2-5.4); Red Cell Distribution Width 12.2 % (11.5-14.5); White Blood Count 5.2 K/mm3 (4.5-10.0)
[2024-08-02 21:14] LABS: Thyroid Stimulating Hormone Reflex 0.991 uIU/mL (0.465-4.68)
[2024-08-02 21:16] LABS: Alanine Aminotransferase 17 U/L (6-35); Albumin Level 4.1 g/dL (3.5-5.1); Alkaline Phosphatase 52 U/L (38-126); Anion Gap 7 mmol/L (4-12); Aspartate Amino Transferase 30 U/L (14-36); Bilirubin,Total 0.4 mg/dL (0.2-1.3); Blood Urea Nitrogen 11 mg/dL (7-17); Calcium 9.6 mg/dL (8.4-10.2); Carbon Dioxide 29 mmol/L (22-30); Chloride 103 mmol/L (98-107); Cholesterol 201 mg/dL (0-200); Estimated Glomerular Filt Rate 55; Glucose 87 mg/dL (65-110); HDL Direct 107 mg/dL; Potassium 4.3 mmol/L (3.4-5.0); Sodium 139 mmol/L (137-145); Triglycerides 175 mg/dL (<150)
[2024-08-02 21:26] LABS: LDL Cholesterol Direct 61 mg/dL
[2024-08-02 21:48] LABS: Hemoglobin A1C 5.3 % (<5.7)
== END 2024-08-02 12:45 | disposition home or self-care (01) ==
LOC: ANHGOSHLAB 12:46
PROVIDERS: PCP Family Medicine; Visit Provider Nurse Practitioner Family
DX: D50.9 Iron deficiency anemia, unspecified (principal); E53.8 Deficiency of other specified B group vitamins; R79.0 Abnormal level of blood mineral; I10 Essential (primary) hypertension; R53.83 Other fatigue; R73.01 Impaired fasting glucose; E78.2 Mixed hyperlipidemia; Z79.899 Other long term (current) drug therapy
CPT/HCPCS: 36415; 80053; 80061; 82607; 82728; 83036; 83540; 83550; 84443; 85025

== ENCOUNTER 2024-10-20 11:02 | Emergency (ER) | payer MEDICARE, SELFPAY ==
[2024-10-20 11:12] VITALS: BP 143/85; PULSE 101; RESP 16; TEMP 36.6; O2SAT 100
--- NOTE | 2024-10-20 11:31 | ED_ITS ---
HPI - URI/Sore Throat General Chief Complaint: Upper Respiratory Infection Stated Complaint: Cough/Drainage Time Seen by Provider: 10/20/24 11:17 Source: patient and RN notes reviewed Mode of arrival: ambulatory Limitations: no limitations History of Present Illness HPI Narrative: Patient presents today with a 2-3 week history of nasal congestion and postnasal drainage. Five days ago she developed headache and fatigue. Yesterday she developed a severe cough that had led to some post-tussive vomiting. Denies shortness of breath or fever. She had tried some Mucinex with little relief. She does have history of chronic sinusitis. She has an appointment for ENT follow-up in 4 days. Patient was on a course of Augmentin and prednisone on 10/04/2024. Related Data Home Medications ?Medication ?Instructions ?Recorded ?Confirmed ?Last Taken ?Type cholecalciferol (vit D3) 137.5 mcg 1 tablet PO DAILY 04/01/20 08/07/24 03/25/21 History (5,500 unit)-vit K2 200 mcg tablet fexofenadine 60 mg tablet (Elizabeth 60 mg PO DAILY PRN Congestion 04/01/20 08/07/24 04/14/21 History Allergy) niacin 1,000 mg tablet,extended 1,000 mg PO BID 04/01/20 08/07/24 03/18/21 History release potassium bicarb 500 mg-magnesium 1 g PO DAILY 04/01/20 08/07/24 03/18/21 History 300 mg/6.1 gram effervescent powder sennosides 8.6 mg tablet (Natural 8.6 mg PO PRN PRN Constipation 12/25/20 08/07/24 04/01/21 History Senna Laxative) ipratropium bromide 21 mcg (0.03 2 spray intranasal BID 01/22/23 08/07/24 Unknown History %) nasal spray [id number] 250 mg-dha 90 1 cap PO DAILY 01/22/23 08/07/24 Unknown History mg-epa 160 [id number] capsule (Ocuvite Adult 50 Plus) mecobalamin (vitamin B12) 1,000 1,000 mcg PO DAILY 01/25/23 08/07/24 Unknown History mcg chewable tablet ferrous sulfate 325 mg (65 mg 325 mg PO BID 11/01/23 08/07/24 Unknown History iron) tablet Allergies Allergy/AdvReac Type Severity Reaction Status Date / Time No Known Allergies Allergy Unknown Verified 10/20/24 11:23 Review of Systems Review of Systems: CONSTITUTIONAL: Denies body aches, fever, chills, or sweats.+ fatigue EYES: Denies visual changes, redness, or discharge. ENT: Denies rhinorrhea, sore throat, or otalgia.+ congestion, postnasal drip CARDIOVASCULAR: Denies chest pain, palpitations, or edema. RESPIRATORY: Denies dyspnea.+ cough GASTROINTESTINAL: Denies abdominal pain, nausea, vomiting, or diarrhea. GENITOURINARY: Denies dysuria or hematuria. SKIN: Denies rash, itching, or wounds. MUSCULOSKELETAL: Denies back pain, joint pain, or myalgia. NEUROLOGIC: Denies numbness, tingling, or weakness.+ headache PSYCH: Denies depression or anxiety. [facility] Past Medical History Medical History Recurrent incisional hernia BMI 26.0-26.9,adult BMI 27.0-27.9,adult Chronic pain of both shoulders Chronic neck pain Macromastia History of mumps History of measles History of chicken pox (~1960) Abdominal hernia Chronic maxillary sinusitis Mixed hyperlipidemia Prediabetes Essential hypertension Surgical History Surgical History H/O cataract removal with insertion of prosthetic lens H/O ventral hernia repair H/O reduction mammoplasty History of incisional hernia repair 10/13/21 History of hernia repair (~01/08/16) History of appendectomy (~05/03/06) History of hysterectomy with bilateral oophorectomy (~06/1987) History of endometrial ablation (~1988) History of tubal ligation (~01/26/85) History of dilatation and curettage (~02/1981) Family History Family History Mother , age 90 Family history of primary malignant neoplasm of liver Family history of pancreatic cancer Diabetes mellitus Hypertension Family history of elevated blood lipids Carcinoma of colon Pancreatic cancer Father , age 62 Family history of coronary artery disease Diabetes mellitus Heart disease Hyperlipidemia Sibling Diabetes mellitus Seizure Mental disability Sibling Heart disease ALS (amyotrophic lateral sclerosis) Sibling , age 32 Liver cirrhosis Grandparent Breast cancer Grandparent Heart disease Social History Social History Smoking status: Never smoker Second hand tobacco smoke exposure: No Alcohol intake: current Drinks per week: 1 Alcohol use details: STATES RARELY - MAYBE 1/MONTH Substance use: never Substance use type: does not use Lack of Transportation: No Lack of Food: Never True Current Housing: I Have Housing Concerned About Future Housing: No Difficulty Paying Gas/Electric Bills: No Difficulty Paying for Meds: No Currently Unemployed: No Education: Master's Degree or Higher Difficulty w/ Childcare or Family Care: No Living arrangements: with family Occupation/Education: retired 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: No Comments At time of signature, I have reviewed and agree with nursing past medical, surgical, social and family history unless otherwise noted. Please see nursing chart for further information. There is no relevant family history pertinent to the presenting complaint Exam Narrative: GENERAL: Well-appearing, well-nourished, and in no acute distress. HEAD: Normocephalic, atraumatic. EYES: EOMI. No redness or drainage. Conjunctivae normal. ENT: Mucous membranes pink and moist. Nares congested with rhinorrhea. TMs normal bilaterally. Throat normal with small amount of purulent postnasal drainage. Uvula midline. NECK: Normal AROM. Supple. No lymphadenopathy. CHEST: No respiratory distress. Clear to auscultation. Harsh cough noted HEART: Regular rate and rhythm. No murmur appreciated. EXTREMITIES: Normal range of motion. No edema. SKIN: Warm, dry, no rash. Capillary refill normal. Normal skin turgor. NEURO: No focal deficits. Alert and oriented x3. Gait steady. PSYCH: Normal affect. No signs of depression or anxiety. Course Course Level of Care: Express Care Visit Vital Signs Vital signs: Vital Signs Temperature 98 F 10/20/24 11:12 Pulse Rate 101 H 10/20/24 11:12 Respiratory Rate 16 10/20/24 11:12 Blood Pressure 143/85 H 10/20/24 11:12 Pulse Oximetry 100 10/20/24 11:12 Temperature 98 F 10/20/24 11:12 Pulse Rate 101 H 10/20/24 11:12 Respiratory Rate 16 10/20/24 11:12 Blood Pressure 143/85 H 10/20/24 11:12 Pulse Oximetry 100 10/20/24 11:12 Reviewed MDM - URI/Sore Throat MDM Narrative Medical decision making narrative: Influenza and COVID negative. Patient will be treated with doxycycline and short course of prednisone as patient has already been on Augmentin and prednisone this month. She follows up with her ENT in a couple days for further evaluation of her sinuses. Anticipatory guidance given. Differential Diagnosis Differential diagnosis: Likely upper respiratory infection, otitis media, sinusitis, bronchitis and other (Pneumonia) Lab Data Attestation: I reviewed the patient's lab results. Lab results narrative: Influenza and COVID negative Critical Care Time Critical Care Time Critical Care Time: No Discharge Plan Discharge Clinical Impression: Bronchitis Acute sinusitis Qualifiers: Sinusitis location: unspecified location Recurrence: recurrent Qualified Code(s): J01.91 - Acute recurrent sinusitis, unspecified Patient Disposition: Home, Self-Care Condition: Stable Instructions: Antibiotic Form, Acute Bronchitis (ED) Additional Instructions: Please take all medications as prescribed. Follow-up with your ENT next week for further evaluation of your congestion symptoms. Go to the ER if you become short of breath or have any difficulty swallowing. Your blood pressure was elevated above 120/80 today at Urgent Care. This puts you above the threshold for follow up. Please schedule a followup visit with your personal physician as soon as possible, for further evaluation and treatment. Even blood pressure exceeding 120/80 may indicate pre-hypertension. Patient Language: Divehi Prescriptions: New benzonatate 200 mg capsule 200 mg PO TID PRN (Reason: cough) Qty: 20 0RF doxycycline hyclate 100 mg tablet 100 mg PO BID 7 Days Qty: 14 0RF prednisone 20 mg tablet 40 mg PO DAILY 5 Days Qty: 10 0RF No Action sennosides [Natural Senna Laxative] 8.6 mg tablet 8.6 mg PO PRN PRN (Reason: Constipation) ipratropium bromide 21 mcg (0.03 %) spray,non-aerosol 2 spray intranasal BID Rx Instructions: administer into each nostril Ocuvite Adult 50 Plus 250 mg (90 mg-160 mg) capsule 1 cap PO DAILY estradiol 1 mg tablet See Rx Instructions .ROUTE .COMPLEX Qty: 90 3RF Dose Instruction: TAKE 1 TABLET BY MOUTH EVERY DAY Rx Instructions: TAKE 1 TABLET BY MOUTH EVERY DAY lisinopril 10 mg tablet 10 mg PO QAM Qty: 90 3RF Rx Instructions: TAKE 1 TABLET BY MOUTH DAILY montelukast 10 mg tablet 10 mg PO DAILY Qty: 90 3RF rosuvastatin 10 mg tablet See Rx Instructions .ROUTE .COMPLEX Qty: 90 3RF Dose Instruction: TAKE 1 TABLET BY MOUTH DAILY Rx Instructions: TAKE 1 TABLET BY MOUTH DAILY metformin 500 mg tablet extended release 24 hr 500 mg PO BID Qty: 180 3RF fexofenadine [Elizabeth Allergy] 60 mg Tablet 60 mg PO DAILY PRN (Reason: Congestion) niacin 1,000 mg Tablet Extended Release 1,000 mg PO BID potassium bicarb-magnesium 21 500-300 mg/6.1 gram Powder Effervescent 1 g PO DAILY vitamin D3-vitamin K2 5,500-200 unit-mcg Tablet 1 tablet PO DAILY mecobalamin (vitamin B12) 1,000 mcg tablet,chewable 1,000 mcg PO DAILY ferrous sulfate 325 mg (65 mg iron) tablet 325 mg PO BID fluticasone propionate [Allergy Relief (fluticasone)] 50 mcg/actuation spray,suspension 1 spray intranasal DAILY Qty: 16 4RF Rx Instructions: administer into each nostril Follow-up/Referrals: Heather Galvez MD [Primary Care Provider] - Time of Disposition: 11:41
[2024-10-20 11:44] LABS: EDCOVIDSCREEN Negative (Negative); EDINFLUASCREEN Negative (Negative); EDINFLUBSCREEN Negative (Negative)
== END 2024-10-20 11:43 | disposition home or self-care (01) ==
PROVIDERS: Emergency Provider Nurse Practitioner; PCP Family Medicine
DX: J40 Bronchitis, not specified as acute or chronic (principal); J01.91 Acute recurrent sinusitis, unspecified; E78.2 Mixed hyperlipidemia; I10 Essential (primary) hypertension; R73.03 Prediabetes; Z20.822 Contact with and (suspected) exposure to COVID-19
CPT/HCPCS: 87426; 87804; 99213; G0463

== ENCOUNTER 2025-02-05 14:41 | Outpatient (CLI) | payer MEDICARE, SELFPAY ==
--- OUTSIDE RECORDS SUMMARY | 2025-02-05 14:44 | XMS_ITS | Clinical Summary ---
Author Organization [facility] Address [address] Attn: Epic Prelude ADT [place] [address] Care Team Providers Care Sr. Director Name Role Phone Unavailable Primary Care Provider Unavailabl e Allergies No known active allergies Medications albuterol sulfate 90 mcg/Actuation inhaler Take 2 Puffs by inhalation every 4 hours as needed for Wheezing. 18 Gram 0 8 Active estradioL (ESTRACE) 1 mg tablet Take 1 mg by mouth daily. 8 Active lisinopriL (PRINIVIL) 10 mg tablet 8 Active metFORMIN (GLUCOPHAGE XR) 500 mg Extended Release 24 hour tablet 8 Active montelukast (SINGULAIR) 10 mg tablet 8 Active amoxicillin (AMOXIL) 875 mg tablet Take 875 mg by mouth every 12 hours. 8 Active fluticasone furoate-vilante roL (BREO ELLIPTA) 200-25 mcg/dose Disk with Device Take 1 Puff by inhalation daily. 8 Active rosuvastatin (CRESTOR) 10 mg tablet 8 Active Social History Tobacco Use Types Packs/Day Years Used Date Smoking Tobacco: Never Smokeless Tobacco: Never Comments Unknown Sex and Gender Information Value Date Recorded Sex Assigned at Not on file Legal Sex Female 2:19 AM PUBLIC RELATIONS INTERN Gender Identity Not on file Sexual Orientation Not on file Last Filed Vital Signs Vital Sign Reading Time Taken Comments Blood Pressure 110/70 03/21/2018 2:28 PM CDT Pulse 70 03/21/2018 2:28 PM CDT Temperature 36.8 C (98.2 F) 03/21/2018 2:28 PM CDT Respiratory Rate 18 03/21/2018 2:28 PM CDT Oxygen Saturation - - Inhaled Oxygen Concentration - - Weight 72.1 kg (159 lb) 03/21/2018 2:28 PM CDT Height 155.6 cm (5' 1.25 ) 03/21/2018 2:28 PM CD T Body Mass Index 29.8 03/21/2018 2:28 PM CDT Plan of Treatment Health Maintenance Due Date Last Done Comments DTAP/TDAP/TD VACCINES (1 - Tdap) 1974 BREAST CANCER SCREENING 1995 COLORECTAL SCREENING 2000 Colorectal Cancer Screening 2000 FIT-DNA Q 3 years 2000 FIT/FOBT Q 1 year 2000 Flex Sig/CT Colonography Q 5 years 2000 PNEUMOCOCCAL VACCINE 50+ YEARS (1 of 1 - PCV) 04/07/20 05 ZOSTER VACCINE (1 of 2) 2005 OSTEOPOROSIS SCREENING 2020 INFLUENZA VACCINE (#1) 2024 RSV VACCINE (60+ or ) (1 - 1-dose 75+ series) 2030
[2025-02-05 20:50] LABS: Alanine Aminotransferase 17 U/L (6-35); Albumin Level 4.3 g/dL (3.5-5.1); Alkaline Phosphatase 58 U/L (38-126); Anion Gap 9 mmol/L (4-12); Aspartate Amino Transferase 39 U/L (14-36); Bilirubin,Total 0.4 mg/dL (0.2-1.3); Blood Urea Nitrogen 19 mg/dL (7-17); Calcium 9.8 mg/dL (8.4-10.2); Carbon Dioxide 24 mmol/L (22-30); Chloride 107 mmol/L (98-107); Estimated Glomerular Filt Rate 45; Glucose 88 mg/dL (65-110); Potassium 4.7 mmol/L (3.4-5.0); Sodium 140 mmol/L (137-145)
[2025-02-05 21:47] LABS: Hemoglobin A1C 5.3 % (<5.7)
== END 2025-02-05 14:42 | disposition home or self-care (01) ==
PROVIDERS: PCP Family Medicine; Visit Provider Nurse Practitioner Family
DX: R73.01 Impaired fasting glucose (principal); I10 Essential (primary) hypertension; Z79.899 Other long term (current) drug therapy
CPT/HCPCS: 36415; 80053; 83036

== ENCOUNTER 2025-05-15 13:23 | Outpatient (CLI) | payer MEDICARE, SELFPAY ==
--- NOTE | ~2025-05-15 | MR_ITS ---
MRI of the cervical spine Clinical History: Radiculopathy Technique: Axial T2-weighted and gradient images, and sagittal T1-weighted, T2- weighted, and STIR images were acquired. Findings: There is minimal reversal normal cervical lordosis. No fracture evident. There is minimal grade 1 anterolisthesis of C4 over C5. No suspicious bone marrow signal abnormality seen. At C2-C3, there is no disc bulge or herniation. No spinal canal stenosis, cord compression, or neural foraminal narrowing. At C3-C4, there is no disc bulge or herniation. There is left facet arthropathy. There is mild left neural foraminal narrowing. Right neural foramen preserved. No canal stenosis or cord compression. At C4-C5, there is disc osteophyte complex with mild canal stenosis and mild ventral cord compression. There is bilateral neural foraminal narrowing with bilateral facet arthropathy, left worse than right. At C5-C6, there is disc osteophyte complex with mild canal stenosis and minimal flattening the ventral cord. There is probable mild bilateral neural foraminal narrowing, left worse than right. At C6-C7, there is minimal disc bulge. No canal stenosis, cord compression, or definite neural foraminal narrowing. No abnormal signal seen in the spinal cord. Paravertebral soft tissues are unremarkable. Impression: Moderate degenerative spondylosis at C4-C5 and C5-C6, as detailed above. Additional degenerative changes, as detailed above. Reviewed, dictated and finalized at [facility]. Impression: Moderate degenerative spondylosis at C4-C5 and C5-C6, as detailed above. Additional degenerative changes, as detailed above.
== END 2025-05-15 13:24 | disposition home or self-care (01) ==
LOC: GOSHIMG 13:24
PROVIDERS: PCP Chiropractor; Visit Provider Nurse Practitioner Family
DX: M47.812 Spondylosis without myelopathy or radiculopathy, cervical region (principal)
CPT/HCPCS: 72141

== ENCOUNTER 2025-07-25 14:51 | Outpatient (CLI) | payer MEDICARE, SELFPAY ==
--- NOTE | ~2025-07-25 | MM_ITS ---
EXAMINATION: MM screening [facility] BI w tess HISTORY: Screening TECHNIQUE: Craniocaudal and mediolateral oblique 3-D tomosynthesis images were obtained and synthetic 2-D images were generated. CAD analysis was submitted and interpreted. COMPARISON: Comparison to multiple prior studies sequentially, with oldest reviewed study dated 12/14/2018. BREAST PARENCHYMAL COMPOSITION: Not dense: There are scattered areas of fibroglandular density. FINDINGS: There is no evidence of suspicious mass, calcification, or architectural distortion to suggest malignancy in either breast. There has been no suspicious interval change. IMPRESSION: 1. No mammographic evidence of malignancy. 2. Recommend routine screening mammography in one year. BI-RADS Category 1: Negative Reviewed, dictated and finalized at location B.
--- OUTSIDE RECORDS SUMMARY | 2025-07-25 16:52 | XMS_ITS | Encounter Summary ---
Author Organization [facility] Address [address] [place] [address] Care Team Providers Care Internist Name Role Phone Unavailable Primary Care Provider Unavailabl e Encounter Details Date Type Department Care Team (Late st Contact Info) Description 03/13/2025 Lab Requisition [facility] Physician [facility] - DermPath Lab [address] [place] [id number] Diya Smith MD [address] [place] [address] Social History Tobacco Use Types Packs/Day Years Used Date Smoking Tobacco: Never Assessed Comments Unknown Sex and Gender Information Value Date Recorded Sex Assigned at Not on file Legal Sex Female 3:57 PM CDT Gender Identity Not on file Sexual Orientation Not on file documented as of this encounter Plan of Treatment Not on file documented as of this encounter Procedures Procedure Name Priority Date/Time Associated Diagnosis Comments DERMATOPATHOLOGY Routine 03/13/2025 1:32 PM CDT documented in this encounter Results * DERMATOPATHOLOGY (03/13/2025 1:32 PM CDT) Case Report Dermatopathology Report Case: [id number] Authorizing Provider: Diya Smith MD Collected: 03/13/2025 01:32 PM Ordering Location: [facility] Physician [facility] - Received: 03/14/2025 07:48 AM DermPath Lab Pathologist: Jose Maria Munroe MD Specimen: Skin, glabella 5 4:09 PM CDT DERMATOPATHOLOGY LABORATORY Final Diagnosis Specimen A. 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 [facility] 5 4:09 PM CDT DERMATOPATHOLOGY LABORATORY Gross Description Specimen A: Received is one formalin filled container labeled with the patient's name and designated glabella. The specimen consists of a shave biopsy measuring 3x3x1 mm. Jar 0. 5 4:09 PM CDT DERMATOPATHOLOGY LABORATORY Microscopic Description Specimen A. SKIN, glabella: Neutrophils, histiocytes, and multinucleated giant cells are present within the dermis. Additional deeper sections were obtained and reviewed. 5 4:09 PM CDT DERMATOPATHOLOGY LABORATORY Disclaimer An external and internal positive and negative controls are appropriate for the histochemical, immunohistochemical and immunofluorescence stain(s) in this case (if any), except where stated explicitly. The performance characteristics of the stain(s) cited in this report were developed and its performance characteristic determined by the Dermatopathology Laboratory at [facility], directed by Dr. Alanna Munroe. These tests need not be, and therefore are not, approved by the [place] Food and Drug Administration. The tests are used for clinical purposes. Billing Codes Specimen Charges Stain Charges 47164 1 5 4:09 PM CDT DERMATOPATHOLOGY LABORATORY Embedded Images 5 4:09 PM CDT DERMATOPATHOLOGY LABORATORY Pathology/Cytolo gy TISSUE SPECIMEN FROM SKIN / Unknown 03/13/2025 1:32 PM CDT 03/14/2025 7:48 AM CDT Diya Smith MD LAB - PATHOLOGY/CYTOLOGY ORD ERABLES Final Result DERMATOPATHOLOGY LABORATORY [facility] - Department of Dermatology [facility] [address] [place] [address], [address] [place] [address], [facility] [phone] documented in this encounter Visit Diagnoses Not on filedocumented in this encounter
--- OUTSIDE RECORDS SUMMARY | 2025-07-25 16:52 | XMS_ITS | Clinical Summary ---
Author Organization [facility] Address [address] [place] [address] Care Team Providers Care Hospice Consultant Name Role Phone Heather Galvez MD Primary Care Provider [phone] Medications lisinopril (PRINIVIL) 10 MG tablet Take 1 tablet (10 mg total) by mouth every morning. 07/04/2025 Active estradiol (ESTRACE) 1 MG tablet Take 1 tablet (1 mg total) by mouth daily. Active rosuvastatin (CRESTOR) 10 MG tablet Take 1 tablet (10 mg total) by mouth daily. 07/04/2025 Active metFORMIN ER (GLUCOPHAGE-XR) 500 MG 24 hr tablet Take 2 tablets (1,000 mg total) by mouth 2 (two) times daily. 07/04/2025 Active fluticasone-darryl meterol (ADVAIR DISKUS) 250-50 MCG/ACT inhaler Inhale 1 puff into the lungs as needed. 12/20/2024 Active montelukast (SINGULAIR) 10 MG tablet Take 1 tablet (10 mg total) by mouth daily. 02/07/2025 Active ipratropium (ATROVENT) 0.03 % nasal spray 2 sprays by Nasal route as needed. 12/30/2024 Active niacin 500 MG Tab Take 2 tablets (1,000 mg total) by mouth 3 (three) times daily. after meals Active cetirizine (ZYRTEC) 5 MG tablet Take 1 tablet (5 mg total) by mouth daily. Active red yeast rice extract 600 MG Cap Take 500 mg by mouth daily. Active NON FORMULARY Potassium/MA GNESIUM Active Senna (SENOKOT) 8.6 MG tablet Take 1 tablet (8.6 mg total) by mouth daily. Active ferrous sulfate EC 325 (65 Fe) MG tablet Take 1 tablet by mouth daily. Active zinc gluconate 50 MG Tab Take 1 tablet (50 mg total) by mouth daily. Active glucosamine 750 MG capsule Take 1 capsule (750 mg total) by mouth daily. Active Active Problems Problem Noted Date Diagnosed Date Myofascial pain 07/11/2025 Encounters Date Type Department Care Team Description 07/11/2025 9:20 AM CDT - 07/11/2025 11:59 PM CDT Hospital Encounter [facility] [place] [address] [id number] Earl Zamora, MANAGER TRADING Discharge Disposition: Home or Self Care (Routine Discharge) 07/11/2025 Travel from Last 3 Months Family History Medical History Relation Comments Diabetes Father Heart Disease Father Hypertension Father Cancer Mother Diabetes Mother Diabetes Sister Heart Disease Sister Relation Status Comments Father Mother Sister Social History Tobacco Use Types Packs/Day Years Used Date Smoking Tobacco: Never Smokeless Tobacco: Never Tobacco Cessation:Counseling Given: Not Answered Alcohol Use Standard Drinks/Week Comments Not Currently 0 (1 standard drink = 0.6 oz pur e alcohol) Comments Unknown Sex and Gender Information Value Date Recorded Sex Assigned at Female 07/11/2025 9:42 AM CDT Legal Sex Female 10:24 AM CDT Gender Identity Not on file Sexual Orientation Not on file Last Filed Vital Signs Vital Sign Reading Time Taken Comments Blood Pressure 160/80 07/11/2025 10:05 AM CDT Pulse 69 07/11/2025 10:05 AM CDT Temperature 36.4 C (97.5 F) 07/11/2025 10:05 AM CDT Respiratory Rate 20 07/11/2025 10:05 AM CDT Oxygen Saturation 100% 07/11/2025 10:05 AM CDT Inhaled Oxygen Concentration - - Weight 58.3 kg (128 lb 9.6 oz) 07/11/2025 10:05 AM CDT Height 154.9 cm (5' 1) 07/11/2025 10:05 AM CDT Body Mass Index 24.3 07/11/2025 10:05 AM CDT Plan of Treatment Upcoming Encounters Date Type Department Care Team (Latest Contact Info) Description 08/13/2025 3:00 PM PERIPHERAL VASCULAR TECH Hospital Encounter [facility] [place] [address] [id number] Gaby Auguste MD [address] [facility] [address] [place] [id number] 08/13/2025 3:00 PM PERIPHERAL VASCULAR TECH - 08/13/2025 3:20 PM PERIPHERAL VASCULAR TECH Surgery [facility] [place] [address] [phone] Gaby Auguste MD Three [address] [address] INJECTION TRIGGER POINT-cervical Scheduled Procedures Name Priority Associated Diagnoses Date/Ti me INJECTION TRIGGER POINT Myofascial pain 08/13/2025 3:00 PM PERIPHERAL VASCULAR TECH Health Maintenance Due Date Last Done Comments Colorectal Cancer Screening Colonoscopy (10 Years) 1955 Hepatitis C 1973 Mammogram Screening 1995 Zoster Vaccines (1 of 2) 2005 Annual Medicare Wellness Visit 2020 Dexa Scan (General) 2020 COVID-19 Vaccine ( season) 2025 06/12/2024, 06/15/2023, 06/19/2022, Additional history exists RSV Immunization or 60+ Years (1 - 1-dose 75+ series) 2030 DTaP, Tdap and Td Vaccines (4 - Td or Tdap) 07/05/2035 07/05/2025, 11/14/2014, 08/18/2005, Additional history exists Hepatitis A Vaccines Aged Out 05/17/2000, 10/20/19 00 No longer eligible based on patient's age to complete this topic Pneumococcal Vaccine: 50+ Years Completed 10/14/2022, 12/30/2021 Influenza Adult Completed 06/13/2025, 01/2024, 09/10/2021, Additional history exists Meningococcal B Vaccine Aged Out No l onger eligible based on patient's age to complete this topic Meningococcal Vaccine Aged Out No kristie luh eligible based on patient's age to complete this topic RSV Immunizations Under 20 Months Aged Out No longer eligible based on patient's age to complete this topic Goals Goal Patient Goal Type Associated Problems Recent Progress Patient-Stated? Author Autogenera sharath Goal Care Plan Autogenerated Problem No GarciaUrvashitao Varma Additional Health Concerns Active Problems Noted Date Diagnosed Date Autogenerated Problem 07/11/2025 Insurance [employer] MEDICARE Care Teams Hospice Consultant Relationship Specialty Start Date End Date Heather Galvez MD [facility] [place] [address] PCP - General FAMILY PRACTICE 07/11/25
--- OUTSIDE RECORDS SUMMARY | 2025-07-25 16:52 | XMS_ITS | Clinical Summary ---
Author Organization [facility] Address [address] [place] [address] Care Team Providers Care Safety Equipment Tester Name Role Phone Unavailable Primary Care Provider Unavailabl e Source Comments [facility],non-owned Affiliates and Associated Physician Practices is amultiple site organization consisting of ambulatory clinics and hospital sitesin [place], [place], [place] and [place]. This disclosure is being madepursuant to the Care Everywhere program and may not contain all information available regarding this patient. Last updated 18.[facility] Social History Tobacco Use Types Packs/Day Years Used Date Smoking Tobacco: Never Assessed Comments Unknown Sex and Gender Information Value Date Recorded Sex Assigned at Not on file Legal Sex Female 3:57 PM CDT Gender Identity Not on file Sexual Orientation Not on file Plan of Treatment Health Maintenance Due Date Last Done Comments BONE DENSITY TESTING 1955 COLOGUARD (AGES 45-75) - COL ON CA SCREENING 1955 COLON MONITORING 1955 COLONOSCOPY - COLON CA SCREENING 1955 CT COLONOGRAPHY - COLON CA SCREENING 1955 Colorectal Cancer Screening 1955 FIT - COLON CA SCREENING 1955 FLEX SIG - COLON CA SCREENING 1955 LIPID TESTING 1955 MAMMOGRAM 1955 HEPATITIS C SCREENING 04/02/1973 DTAP/TDAP/TD VACCINES (1 - Tdap) 1974 PNEUMOCOCCAL VACCINE 50+ (1 of 1 - PCV) 2005 ZOSTER VACCINE (1 of 2) 2005 DEPRESSION SCREENING 09/27/2024 MEDICARE AWV CALENDAR YEAR 2024 COVID-19 VACCINE (1 - 2023-2 5 season) 2025 INFLUENZA VACCINE (#1) 2025 Respiratory Syncytial Virus (RSV) Vaccine Pt: or over 60 yrs (1 - 1-dose 75+ series) 2030 HEPATITIS B VACCINE Aged Out No longe r eligible based on patient's age to complete this topic HIB VACCINE Aged Out No longer eligi ble based on patient's age to complete this topic HPV VACCINE Aged Out No longer eligi ble based on patient's age to complete this topic MENINGOCOCCAL (Group B) VACC INE SHARED DECISION-MAKING Aged Out No longer eligibl e based on patient's age to complete this topic MENINGOCOCCAL GROUPS A/C/Y/W VACCINE Aged Out No longer eligible b ased on patient's age to complete this topic Insurance U[employer] MANAGED MEDICARE ADV AET MEDICARE ADV
--- OUTSIDE RECORDS SUMMARY | 2025-07-25 16:52 | XMS_ITS | Clinical Summary ---
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
--- OUTSIDE RECORDS SUMMARY | 2025-07-25 16:52 | XMS_ITS | Clinical Summary ---
Author Organization [facility] Address [address] [place] [address] Care Team Providers Care Camp Boss Name Role Phone Unavailable Primary Care Provider Unavailabl e Allergies No known active allergies Medications amoxicillin (AMOXIL) 875 mg tablet Take 875 mg by mouth every 12 hours. Active fluticasone-sandra anterol (BREO ELLIPTA) 200-25 mcg/dose Disk with Device Take 1 Puff by inhalation daily. Active lisinopril (PRINIVIL) 10 mg tablet 8 Active metFORMIN (GLUCOPHAGE XR) 500 mg Extended Release 24 hour tablet 8 Active montelukast (SINGULAIR) 10 mg tablet 8 Active rosuvastatin (CRESTOR) 10 mg tablet 8 Active estradiol (ESTRACE) 1 mg tablet Take 1 mg by mouth daily. Active albuterol HFA 90 mcg inhaler Take 2 Puffs by inhalation every 4 hours as needed for Wheezing. 18 Gram 8 Active Active Problems No known active problems Social History Tobacco Use Types Packs/Day Years Used Date Smoking Tobacco: Never Smokeless Tobacco: Never Comments No Sex and Gender Information Value Date Recorded Sex Assigned at Not on file Legal Sex Female 1:27 PM CDT Gender Identity Not on file Sexual Orientation Not on file Last Filed Vital Signs Vital Sign Reading Time Taken Comments Blood Pressure 110/70 03/21/2018 2:28 PM CDT Pulse 70 03/21/2018 2:28 PM CDT Temperature 36.8 C (98.2 F) 03/21/2018 2:28 PM CDT Respiratory Rate 18 03/21/2018 2:28 PM CDT Oxygen Saturation 99% 03/21/2018 2:28 PM CDT Inhaled Oxygen Concentration - - Weight 72.1 [...] ) (1 - 1-dose 75+ series) 2030 Insurance [employer]
== END 2025-07-25 14:52 | disposition home or self-care (01) ==
LOC: ANHFOHIMG 14:52
PROVIDERS: PCP Family Medicine; Visit Provider Family Medicine
DX: Z12.31 Encounter for screening mammogram for malignant neoplasm of breast (principal)
CPT/HCPCS: 77063; 77067

== ENCOUNTER 2025-08-02 10:48 | Outpatient (CLI) | payer MEDICARE, SELFPAY ==
[2025-08-02 12:58] LABS: Hematocrit 37.4 % (37.0-47.0); Hemoglobin 12.7 g/dL (12.0-15.0); Immature Granulocyte Percent A 0.2 % (0-0.5); Lymphocytes Absolute Auto 1.81 K/mm3 (0.9-3.2); Mean Corpuscular HGB Conc 34.0 g/dl (32-36); Mean Corpuscular Hemoglobin 34.1 pg (26-34); Mean Corpuscular Volume 100.5 fl (80-100); Nucleated Red Blood Cells Absolute Auto 0.000 K/mm3 (0.0-0.012); Nucleated Red Blood Cells Perc 0.0 % (0.0-0.2); Platelet Count Result 268 k/mm3 (150-375); Red Blood Count 3.72 M/mm3 (4.2-5.4); White Blood Count 4.5 K/mm3 (4.5-10.0)
[2025-08-02 13:06] LABS: Alanine Aminotransferase 16 U/L (6-35); Albumin Level 4.3 g/dL (3.5-5.1); Alkaline Phosphatase 61 U/L (38-126); Anion Gap 8 mmol/L (4-12); Aspartate Amino Transferase 37 U/L (14-36); Bilirubin,Total 0.4 mg/dL (0.2-1.3); Blood Urea Nitrogen 14 mg/dL (7-17); Calcium 9.6 mg/dL (8.4-10.2); Carbon Dioxide 23 mmol/L (22-30); Chloride 105 mmol/L (98-107); Cholesterol 220 mg/dL (0-200); Estimated Glomerular Filt Rate 42; Glucose 86 mg/dL (65-110); Potassium 5.0 mmol/L (3.4-5.0); Sodium 136 mmol/L (137-145); Total Protein 6.7 g/dL (6.3-8.2); Triglycerides 169 mg/dL (<150)
[2025-08-02 13:45] LABS: HDL Direct 129 mg/dL
[2025-08-02 13:50] LABS: Ferritin 42.10 ng/mL (11.1-264)
[2025-08-02 14:22] LABS: Vitamin B12 770.0 pg/mL (239-931)
[2025-08-02 16:22] LABS: Hemoglobin A1C 5.3 % (<5.7)
--- OUTSIDE RECORDS SUMMARY | 2025-08-02 18:50 | XMS_ITS | Clinical Summary ---
Author Organization [facility] Address [address] [place] [address] Care Team Providers Care Emulsion Operator Name Role Phone Unavailable Primary Care Provider [...] (1 - 1-dose 75+ series) 2030 Insurance [employer]
--- OUTSIDE RECORDS SUMMARY | 2025-08-02 18:50 | XMS_ITS | Clinical Summary ---
Author Organization [facility] Address [address] [place] [address] Care Team Providers Care Program Control Analyst Name Role Phone Heather Galvze MD Primary Care Provider [phone] Medications lisinopril (PRINIVIL) 10 MG tablet Take [...] - 07/11/2025 11:59 PM CDT Hospital Encounter [facility] [place] [address] [id number] Earl Zamora, SUPERVISOR AIRPLANE FLIGHT ATTENDANT Discharge Disposition: Home or Self Care (Routine [...] (Latest Contact Info) Description 08/13/2025 3:00 PM DESTINATION SPECIALIST Hospital Encounter [facility] [place] [address] [id number] Gaby Auguste MD [address] [facility] [address] [place] [address] 08/13/2025 3:00 PM DESTINATION SPECIALIST - 08/13/2025 3:20 PM DESTINATION SPECIALIST Surgery [facility] Interventional Pain [place] [address] [id number] Gaby Auguste MD Three [address] [address] INJECTION TRIGGER POINT-cervical Scheduled Procedures Name Priority Associated Diagnoses Date/Ti me INJECTION TRIGGER POINT Myofascial pain 08/13/2025 3:00 PM DESTINATION SPECIALIST Health Maintenance Due Date Last Done Comments [...] Problem 07/11/2025 Insurance AET[employer] MEDICARE Care Teams Program Control Analyst Relationship Specialty Start Date End Date Heather Galvez MD [facility] [address] PCP - General FAMILY PRACTICE 07/11/25
--- OUTSIDE RECORDS SUMMARY | 2025-08-02 18:50 | XMS_ITS | Clinical Summary ---
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
--- OUTSIDE RECORDS SUMMARY | 2025-08-02 18:50 | XMS_ITS | Encounter Summary ---
Author Organization [facility] Address [address] [place] [address] Care Team Providers Care Supervisor Toy Assembly Name Role Phone Unavailable Primary Care Provider Unavailabl e Encounter Details Date Type Department Care Team (Late st Contact Info) Description 03/13/2025 Lab Requisition [facility] Physician [facility] - DermPath Lab [address] [place] [id number] Diya Smith MD [address] [facility] [address] [place] [address] Social History Tobacco Use Types Packs/Day Years [...] PM CDT) Case Report Dermatopathology Report Case: [id number] Authorizing Provider: Diya Smith MD Collected: 03/13/2025 01:32 PM Ordering Location: [facility] Physician [facility] - Received: 03/14/2025 07:48 AM DermPath Lab Pathologist: Jose Maria Munroe MD Specimen: Skin, glabella 5 4:09 PM CDT DERMATOPATHOLOGY LABORATORY Final Diagnosis Specimen A. 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 [facility] 5 4:09 PM [...] characteristic determined by the Dermatopathology Laboratory at [facility], directed by Dr. Alanna Munroe. These tests need not be, and therefore are not, approved by the [place] Food and Drug Administration. The tests are used for clinical purposes. Billing Codes Specimen Charges Stain Charges 30667 1 5 4:09 PM CDT DERMATOPATHOLOGY LABORATORY Embedded Images 5 4:09 PM CDT DERMATOPATHOLOGY LABORATORY Pathology/Cytolo gy TISSUE SPECIMEN FROM SKIN / Unknown 03/13/2025 1:32 PM CDT 03/14/2025 7:48 AM CDT Diya Smith MD LAB - PATHOLOGY/CYTOLOGY ORD ERABLES Final Result DERMATOPATHOLOGY LABORATORY [facility] - Department of Dermatology [facility] Medicine [address] [place] [address], [address] [place] [address], [facility] [phone] documented in this encounter Visit Diagnoses Not on filedocumented in this encounter
--- OUTSIDE RECORDS SUMMARY | 2025-08-02 18:50 | XMS_ITS | Clinical Summary ---
Author Organization [facility] Address [address] [place] [address] Care Team Providers Care Electrical Prospecting Observer Name Role Phone Unavailable Primary Care Provider Unavailabl e Source Comments [facility],non-owned Affiliates and Associated Physician Practices is amultiple site organization consisting of ambulatory clinics and hospital sitesin [place], [place], [place] and [place]. This disclosure is being madepursuant to the Care Everywhere program and may not contain all information available regarding this patient. Last updated 18.[facility] Social History Tobacco Use Types Packs/Day Years [...]
[2025-08-03 14:08] LABS: Deamidated Gliadin Abs, IgA 2 units (0-19); Deamidated Gliadin Abs, IgG 3 units (0-19); Immunoglobulin A, Qn 87 mg/dL (87-352)
== END 2025-08-02 10:49 | disposition home or self-care (01) ==
LOC: ANHGOSHLAB 10:49
PROVIDERS: PCP Family Medicine; Visit Provider Family Medicine
DX: D50.9 Iron deficiency anemia, unspecified (principal); E53.8 Deficiency of other specified B group vitamins; R73.03 Prediabetes; E78.2 Mixed hyperlipidemia
CPT/HCPCS: 36415; 80053; 80061; 82607; 82728; 82784; 83036; 85025; 86231; 86258

== ENCOUNTER 2025-08-08 01:39 | Day surgery (SDC) | payer MEDICARE, SELFPAY ==
[2025-07-30 10:03] VITALS: BMI 24.1
--- OUTSIDE RECORDS SUMMARY | 2025-08-08 01:42 | XMS_ITS | Clinical Summary ---
Author Organization [facility] Address [address] [place] [address] Care Team Providers Care Roll Tender Name Role Phone Unavailable Primary Care Provider [...] (1 - 1-dose 75+ series) 2030 Insurance [employer]
--- OUTSIDE RECORDS SUMMARY | 2025-08-08 01:42 | XMS_ITS | Clinical Summary ---
Author Organization [facility] Address [address] [place] [address] Care Team Providers Care In File Operator Name Role Phone Unavailable Primary Care Provider Unavailabl e Source Comments [facility],non-owned Affiliates and Associated Physician Practices is amultiple site organization consisting of ambulatory clinics and hospital sitesin [place], [place], [place] and [place]. This disclosure is being madepursuant to the Care Everywhere program and may not contain all information available regarding this patient. Last updated 18.[facility] Social History Tobacco Use Types Packs/Day Years [...]
--- OUTSIDE RECORDS SUMMARY | 2025-08-08 01:42 | XMS_ITS | Clinical Summary ---
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
--- OUTSIDE RECORDS SUMMARY | 2025-08-08 01:42 | XMS_ITS | Clinical Summary ---
Author Organization [facility] Address [address] [place] [address] Care Team Providers Care Music Assistant Name Role Phone Heather Galvez MD Primary Care Provider [phone] Medications lisinopril (PRINIVIL) 10 MG tablet Take [...] - 07/11/2025 11:59 PM CDT Hospital Encounter [facility] Interventional [facility] [place] [address] [id number] Earl Zamora, APPLICATIONS SCIENTIST Discharge Disposition: Home or Self Care (Routine [...] Sex Female 10:24 AM CDT Gender Identity Female 08/06/2025 1:28 PM TROLLEY WORKER Sexual Orientation Straight 08/06/2025 1: 28 PM TROLLEY WORKER Last Filed Vital Signs Vital Sign Reading [...] (Latest Contact Info) Description 08/13/2025 3:00 PM TROLLEY WORKER Hospital Encounter [facility] Interventional [facility] [place] [address] [id number] Gaby Auguste MD Three [address] [address] 08/13/2025 3:00 PM TROLLEY WORKER - 08/13/2025 3:20 PM TROLLEY WORKER Surgery [facility] Interventional [place] [address] [id number] Gaby Auguste MD [address] [address] INJECTION TRIGGER POINT-cervical Scheduled Procedures Name Priority Associated Diagnoses Date/Ti me INJECTION TRIGGER POINT Myofascial pain 08/13/2025 3:00 PM TROLLEY WORKER Health Maintenance Due Date Last Done Comments [...] Completed 10/14/2022, 12/30/2021 Influenza Adult Completed 06/13/2025, 0 01/2024, 09/10/2021, Additional history exists Meningococcal B Vaccine Aged Out No l onger eligible based on patient's age to complete this topic Meningococcal Vaccine Aged Out No kristie luh eligible based on patient's age to complete this topic RSV Immunizations Under 20 Months Aged Out No longer eligible based on patient's age to complete this topic Insurance AETNA MEDICARE Care Teams Music Assistant Relationship Specialty Start Date End Date Heather Galvez MD [facility] [address] PCP - General FAMILY PRACTICE 07/11/25
[2025-08-08 10:23] VITALS: BP 154/74; PULSE 73; RESP 16; TEMP 36.3; O2SAT 100; BMI 23.9
[2025-08-08] MEDS: LACTATED RINGERS 1,000 ML 150 ML IV CONT (10:44)
--- NOTE | 2025-08-08 11:22 | PM.HPGS ---
History of Present Illness History of Present Illness Consent: Risks, benefits, and alternatives have been discussed and questions answered. Patient agrees to proceed with procedure. Chief complaint: Encounter for screening for malignant neoplasm of Narrative: Cyndy Sahni is a 70 year old female with colon polyp 5 years ago, mother also had colon cancer Review of Systems Review of Systems: All systems reviewed & are unremarkable except as noted in HPI and below PMFSH Past Medical History Medical History (Updated 05/18/25 @ 15:04 by Francie Mendoza, LINE WALKER, DIRECTOR REHABILITATION PROGRAM-C) Bronchitis Chronic ethmoidal sinusitis Acute recurrent maxillary sinusitis COVID-19 Cervical radiculopathy due to degenerative joint disease of spine Recurrent incisional hernia BMI 26.0-26.9,adult BMI 27.0-27.9,adult Chronic pain of both shoulders Chronic neck pain Macromastia History of mumps History of measles History of chicken pox (~1960) Abdominal hernia Chronic maxillary sinusitis Mixed hyperlipidemia Prediabetes ( max 5.8 6.9.22) Essential hypertension Surgical History Surgical History H/O cataract removal with insertion of prosthetic lens H/O ventral hernia repair H/O reduction mammoplasty History of incisional hernia repair 10/13/21 History of hernia repair (~01/08/16) History of appendectomy (~05/03/06) History of hysterectomy with bilateral oophorectomy (~06/1987) History of endometrial ablation (~1988) History of tubal ligation (~01/26/85) History of dilatation and curettage (~02/1981) Family History Family History Mother , age 90 Family history of primary malignant neoplasm of liver Family history of pancreatic cancer Diabetes mellitus Hypertension Family history of elevated blood lipids Carcinoma of colon Pancreatic cancer Father , age 62 Family history of coronary artery disease Diabetes mellitus Heart disease Hyperlipidemia Sibling Diabetes mellitus Seizure Mental disability Sibling Heart disease ALS (amyotrophic lateral sclerosis) Sibling , age 32 Liver cirrhosis Grandparent Breast cancer Grandparent Heart disease Social History Social History Smoking status: Never smoker Second hand tobacco smoke exposure: No Alcohol intake: never Drinks per week: 1 Alcohol use details: STATES RARELY - MAYBE 1/MONTH Substance use: never Substance use type: does not use Lack of Transportation: No Lack of Food: Never True Current Housing: I Have Housing Concerned About Future Housing: No Difficulty Paying Gas/Electric Bills: No Difficulty Paying for Meds: No Currently Unemployed: No Education: Master's Degree or Higher Difficulty w/ Childcare or Family Care: No Living arrangements: with family Occupation/Education: retired 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: No Meds Home Medications and Allergies Home Medications ?Medication ?Instructions ?Recorded ?Confirmed ?Type cholecalciferol (vit D3) 137.5 mcg 1 tablet PO DAILY 04/01/20 08/08/25 History (5,500 unit)-vit K2 200 mcg tablet niacin 1,000 mg tablet,extended 1,000 mg PO DAILY 04/01/20 08/08/25 History release sennosides 8.6 mg tablet (Natural 8.6 mg PO PRN PRN Constipation 12/25/20 08/08/25 History Senna Laxative) ipratropium bromide 21 mcg (0.03 2 spray intranasal BID 01/22/23 08/08/25 History %) nasal spray mecobalamin (vitamin B12) 1,000 1,000 mcg PO DAILY 01/25/23 08/08/25 History mcg chewable tablet ferrous sulfate 325 mg (65 mg 325 mg PO BID 11/01/23 08/08/25 History iron) tablet cetirizine 10 mg tablet (Zyrtec) 10 mg PO DAILY PRN allergy symptoms 02/01/25 07/30/25 History Juice Plus See Rx Instructions PO BID 02/07/25 08/08/25 History Lactobacillus 1 cap PO DAILY 02/07/25 08/08/25 History reuteri-Lactobacillus rhamnosus 2 billion cell capsule ([employer] Women's) [employer] See Rx Instructions PO DAILY 02/07/25 08/08/25 History Vitreous Health See Rx Instructions PO DAILY 02/07/25 08/08/25 History estradiol 1 mg tablet See Rx Instructions .Route 02/07/25 08/08/25 Rx .COMPLEX #90 tabs lifitegrast 5 % eye drops in a 1 drp EACH EYE Q12H 02/07/25 08/08/25 History dropperette (Xiidra) lisinopril 10 mg tablet 10 mg PO QAM #90 tabs 02/07/25 08/08/25 Rx magnesium citrate-potassium 1 tablet PO HS 02/07/25 08/08/25 History citrate ER 7.5 mEq tablet,extended release metformin 500 mg tablet,extended 1,000 mg (2 x 500 mg) PO BID #360 02/07/25 08/08/25 Rx release 24 hr tabs montelukast 10 mg tablet 10 mg PO DAILY #90 tabs 02/07/25 08/08/25 Rx red yeast rice 600 mg capsule 600 mg PO BID 02/07/25 08/08/25 History rosuvastatin 10 mg tablet See Rx Instructions .Route 02/07/25 08/08/25 Rx .COMPLEX #90 tabs vit B 1 cap PO DAILY 02/07/25 08/08/25 History complex-methyltetrahydrofolate glucosamine 680 mcg DFE capsule zinc See Rx Instructions PO .COMPLEX 02/07/25 08/08/25 History fluticasone propionate 50 1 spray intranasal DAILY #48 grams 04/25/25 08/08/25 Rx mcg/actuation nasal spray,suspension (Flonase Allergy Relief) glucosamine sulfate 750 mg tablet 750 mg PO BID 07/30/25 08/08/25 History (Aura) Allergies Allergy/AdvReac Type Severity Reaction Status Date / Time No Known Allergies Allergy Unknown Verified 08/08/25 10:30 Vital Signs Vital Signs - 24 hr 08/08/25 10:23 Temperature 97.3 F L Pulse Rate 73 Respiratory Rate 16 Blood Pressure 154/74 H Pulse Oximetry 100 Oxygen Delivery Room Air Exam Const: General: comfortable and no acute distress HENMT: Face/Nose/Sinus: Normal nares present Eyes: General: appearance normal, both eyes and all related structures Neck: Neck: no JVD Resp: Auscultation: clear to auscultation bilaterally Cardio: Rate: regular rate Rhythm: regular rhythm GI: Inspection: non-distended GI Palp: Yes Soft to palpation Skin: General skin exam: normal color Extrem: General: normal to inspection Psych: Mental Status: mental status grossly normal Assessment and Plan Assessment and plan (1) Family history of colon cancer in mother: Code(s): Z80.0 - Family history of malignant neoplasm of digestive organs Status: Acute Assessment and Plan: colonoscopy (2) Personal history of colonic polyps: Code(s): Z86.010 - Personal history of colon polyps Status: Acute
[2025-08-08 11:44] VITALS: BP 115/69; PULSE 66; RESP 26; O2SAT 100
[2025-08-08 11:54] VITALS: BP 124/69; PULSE 58; RESP 18; O2SAT 94
[2025-08-08 12:04] VITALS: BP 122/67; PULSE 55; RESP 15; O2SAT 100
== END 2025-08-08 12:13 | disposition home or self-care (01) ==
PROVIDERS: PCP Family Medicine; Visit Provider Internal Medicine Gastroenterology
PROC: 0DJD8ZZ Inspection of Lower Intestinal Tract, Via Natural or Artificial Opening Endoscopic (ICD-10-PCS; CPT 45378; principal; 2025-08-08 11:00)
DX: Z12.11 Encounter for screening for malignant neoplasm of colon (principal); K63.89 Other specified diseases of intestine; K64.8 Other hemorrhoids; Z86.0100 Personal history of colon polyps, unspecified; Z80.0 Family history of malignant neoplasm of digestive organs
CPT/HCPCS: G0105; J2003; J2704; J7120